=== PATIENT | female | born 1955 | race Caucasian/White ===

== ENCOUNTER 2018-10-24 13:10 | Inpatient (IN) | payer SELFPAY ==
--- NOTE | 2018-10-24 13:17 | PDOC ---
Rapid Medical Evaluation Chief Complaint: Pain, Acute Time Seen by Provider: 10/24/18 13:14 Medical Evaluation: 10/24/18 13:14 I have performed a brief in-person evaluation of this patient. The patient presents with a chief complaint of: abd pain / N/V- sent from Dr Velasquez for eval Pertinent physical exam findings: pale , abd distended with generalized pain I have ordered the following: Cbc , CMP, Lipase, UA, The patient will proceed to the ED for further evaluation. 10/24/18 13:16 Discharge Disposition - Diagnosis Abdominal pain - Referrals - Patient Instructions - Post Discharge Activity
[2018-10-24] MEDS ORDERED: ACETAMINOPHEN 1000 MG/100 ML VIAL (NON FORMULARY) IVPB ONE (13:58)
--- NOTE | 2018-10-24 14:05 | PDOC ---
History of Present Illness - General Chief Complaint: Pain Stated Complaint: SENT BY PCP/ ABD. PAIN Time Seen by Provider: 10/24/18 13:14 History Source: Patient Exam Limitations: No Limitations - History of Present Illness Initial Comments: 63 yo F no PMH p/w diffuse abdominal pain. Went to restaurant on Sunday, had diarrhea immediately upon leaving. Developed nausea and had 5 episodes of vomiting over the next two days. Ate only soup and some danielle mook since Sunday due to concerns about triggering more nausea, despite having a normal appetite. Yesterday, developed sharp periumbilical pain that started off intermittent but has since become constant. Went to her doctor Dr. Velasquez today, who immediately sent her to the ER. Denies CP, SOB, wheezing, headache, constipation, fevers/chills. Endorses sleeping more than usual. Denies any nausea, vomiting, or diarrhea over the last couple of days. Further endorses occasional dizziness she describes as "missing a step" and some lightheadedness triggered when sitting up quickly, which she attributes to poor oral intake. 10/24/18 14:00 Past History - Past Medical History Allergies/Adverse Reactions: Allergies Allergy/AdvReac Type Severity Reaction Status Date / Time No Known Allergies Allergy Verified 10/24/18 13:17 Home Medications: Ambulatory Orders NK [No Known Home Medication] 10/24/18 COPD: No - Suicide/Smoking/Psychosocial Hx Smoking History: Never smoked Information on smoking cessation initiated: No Hx Alcohol Use: No Drug/Substance Use Hx: No Review of Systems - Review of Systems Able to Perform ROS?: Yes Is the patient limited Bengali proficient: No Constitutional: No: Chills, Diaphoresis, Fever, Loss of Appetite HEENTM: No: Eye Pain, Blurred Vision, Recent change in vision, Double Vision, Hearing Loss, Throat Pain, Throat Swelling, Difficulty Swallowing, Mouth Swelling Respiratory: No: Cough, Orthopnea, Shortness of Breath Cardiac (ROS): Yes: Lightheadedness (when sitting up too quickly). No: Chest Pain, Irregular Heart Rate ABD/GI: Yes: See HPI, Other (diffuse abdominal pain). No: Abdominal Distended, Constipated, Diarrhea, Nausea, Vomiting : No: Burning, Dysuria, Discharge, Frequency Neurological: No: Headache, Numbness, Pre-Existing Deficit, Seizure, Tingling *Physical Exam - Vital Signs Last Vital Signs Temp Pulse Resp BP Pulse Ox 98.5 F 127 H 19 112/63 97 10/24/18 13:14 10/24/18 13:14 10/24/18 13:14 10/24/18 13:14 10/24/18 13:14 - Physical Exam General Appearance: Yes: Nourished, Appropriately Dressed. No: Apparent Distress HEENT: positive: EOMI, JONATHAN, Normal ENT Inspection, Normal Voice, Symmetrical, Pharynx Normal Neck: positive: Trachea midline, Normal Thyroid, Supple. negative: Decreased range of motion Respiratory/Chest: positive: Lungs Clear, Normal Breath Sounds. negative: Chest Tender, Respiratory Distress, Accessory Muscle Use Cardiovascular: positive: Regular Rhythm, Tachycardia Gastrointestinal/Abdominal: positive: Normal Bowel Sounds, Tender ( periumbilical and epigastric, including both percussion and palpation, less tenderness on each lateral side), Soft Musculoskeletal: positive: Normal Inspection. 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 Will get CBC CMP lactate EKG trop lactate. Plan for CT abd/pelvis w/ contrast based on creatinine. IV acetaminophen for pain. 10/24/18 14:16 WBC 9.7, UA negative for nitrates and leuk esterase 10/24/18 15:15 EKG reviewed, HR 85, incomplete RBBB, no STEMI. 10/24/18 16:27 Patient very emotional, wants to leave and go home to 14 yo dog who needs her. Explained the necessity of getting CT scan and patient is willing to stay for now. 10/24/18 16:35 CT reviewed, shows acute pancreatitis. Will keep NPO. 10/24/18 18:[address] Velasquez. Plan to admit with GI consult, start LR at 125cc/hr. 10/24/18 18:10 Patient reluctant to stay, but willing after risks and benefits explained. 10/24/18 18:36 CT read as patient being status post cholecystectomy, however patient denies ever having any abdominal surgery. 10/24/18 18:46 *DC/Admit/Observation/Transfer Diagnosis at time of Disposition: Abdominal pain, Acute pancreatitis - Discharge Dispostion Condition at time of disposition: Guarded Decision to Admit order: Yes - Referrals - Patient Instructions - Post Discharge Activity
[2018-10-24] MEDS ORDERED: SODIUM CHLORIDE 1,000 ML IV ONE (14:29)
[2018-10-24] MEDS ORDERED: ACETAMINOPHEN INJECTION 100 ML IVPB ONE (14:30)
--- NOTE | 2018-10-24 14:37 | PDOC ---
Attending Attestation - Resident Resident Name: Al Busch - ED Attending Attestation I have performed the following: I have examined & evaluated the patient, The case was reviewed & discussed with the resident, I agree w/resident's findings & plan, Exceptions are as noted
--- NOTE | 2018-10-24 14:41 | PDOC ---
Documentation entered by Jose Sarkar SCRIBE, acting as scribe for Darren Darby MD. Darren Darby MD: This documentation has been prepared by the scribe, Jose Sarkar SCRIBE, under my direction and personally reviewed by me in its entirety. I confirm that the documentation accurately reflects all work, treatment, procedures, and medical decision making performed by me. Attending Attestation - Resident Resident Name: Al Busch - ED Attending Attestation I have performed the following: I have examined & evaluated the patient, The case was reviewed & discussed with the resident, I agree w/resident's findings & plan, Exceptions are as noted - HPI HPI: 10/24/18 14:23 The patient is a 63 year female with no significant past medical history who presets to the emergency department with abdominal pain for 5 days. She states that her pain is localized in the epigastric region with some associated nausea , vomiting (5 episodes). The patient states that she went to see her PCP secondary to the persistent and worsening of her pain by which she was sent to the ED for further evaluation. The patient states that she is comfortable at rest. She denies any fever, chills, diarrhea, bpr, melena, constipation or urinary symptoms. She denies any sick contacts, recent travel, weakness or dizziness. The patient denies any other complaints. - Physicial Exam PE: 10/24/18 14:38 GENERAL: The patient is awake, alert, and fully oriented, Nontoxic - in no acute distress. HEAD: Normocephalic, atraumatic. EYES: extraocular movements intact, sclera anicteric, conjunctiva clear. ENT: Normal voice, dry mucous membranes. NECK: Normal range of motion, supple LUNGS: Breath sounds equal, clear to auscultation bilaterally. No wheezes, no rhonchi, no rales. HEART: tachycardic ABDOMEN: Soft, mild diffuse tenderness, no rebound or guarding, no CVA tenderness EXTREMITIES: Normal range of motion, no edema. NEUROLOGICAL: No facial assymetry, Normal speech, PSYCH: Normal mood, normal affect. SKIN: Warm, Dry, normal turgor, - Medical Decision Making 10/24/18 14:38 differential for the patient's symptoms includes possible gastroenteritis, pancreatitis, enteritis will ck labs, la will obtain CT abd pt noted tachycardic at triage- suspect due to dehydration as she has not eatin[facility] abd pain pt oethewise well appearing, smiling 10/24/18 16:55 labs noted for elevated willy/lfts awiating CT abd, signed out to evening team to reasess and dispo
[2018-10-24 14:56] LABS: BASO % 0.3 % (0-2.0); EOS % 0.4 % (0-4.5); HEMATOCRIT 37.4 % (32.4-45.2); HEMOGLOBIN 12.7 GM/dL (10.7-15.3); LYMPH % 7.3 % (8-40); MCH 30.5 pg (25.7-33.7); MCHC 33.8 g/dl (32.0-36.0); MEAN CELL VOLUME 90.3 fl (80-96); MEAN PLT VOLUME 8.3 fl (7.5-11.1); MONO % 9.4 % (3.8-10.2); NEUT % 82.6 % (42.8-82.8); PLATELET COUNT 203 K/MM3 (134-434); RBC 4.15 M/mm3 (3.60-5.2); RDW 12.4 % (11.6-15.6); WHITE BLOOD COUNT 9.7 K/mm3 (4.0-10.0)
[2018-10-24 15:03] LABS: PH,URINE 5.5 (5.0-8.0); URINE APPEARANCE CLEAR; URINE BILIRUBIN NEGATIVE (NEGATIVE); URINE COLOR YELLOW; URINE GLUCOSE (UA) NEGATIVE (NEGATIVE); URINE KETONE NEGATIVE (NEGATIVE); URINE LEUK ESTERASE TRACE (NEGATIVE); URINE NITRITE NEGATIVE (NEGATIVE); URINE PROTEIN NEGATIVE (NEGATIVE); URINE UROBILINOGEN 0.2 mg/dL (0.2-1.0)
--- NOTE | 2018-10-24 15:21 | EKG ---
Test Reason : Blood Pressure : / mmHG Vent. Rate : 085 BPM Atrial Rate : 085 BPM P-R Int : 166 ms QRS Dur : 100 ms QT Int : 386 ms P-R-T Axes : 075 018 062 degrees QTc Int : 459 ms NORMAL SINUS RHYTHM POSSIBLE LEFT ATRIAL ENLARGEMENT INCOMPLETE RIGHT BUNDLE BRANCH BLOCK BORDERLINE ECG NO PREVIOUS ECGS AVAILABLE Confirmed by TY DOYLE, RACHAEL ([id number]) on 10/24/2018 3:21:14 PM Referred By: Confirmed By:RACHAEL CRAWFORD MD
[2018-10-24 15:43] LABS: EPI CELLS 1.5 /HPF (0-5/HPF); HYALINE CASTS 0 /lpf (0-8); URINE BACTERIA 5.7 /hpf (NEGATIVE); URINE RBC 1.5 /hpf (0-4); URINE WBC 3.5 /hpf (0-5)
[2018-10-24 15:46] LABS: ALBUMIN 3.5 g/dl (3.4-5.0); ALK PHOS 205 U/L (45-117); ANION GAP 7 MMOL/L (8-16); BILIRUBIN,TOTAL 1.6 mg/dL (0.2-1); BLOOD UREA NITROGEN 11.8 mg/dL (7-18); CALCIUM 8.5 mg/dL (8.5-10.1); CHLORIDE 104 mmol/L (98-107); CO2 29 mmol/L (21-32); CREATININE 0.8 mg/dL (0.55-1.3); GLUCOSE,RANDOM 86 mg/dL (74-106); LIPASE 293 U/L (73-393); SGOT/AST 112 U/L (15-37); SGPT/ALT 498 U/L (13-61); SODIUM 140 mmol/L (136-145); TOT PROT 6.7 g/dl (6.4-8.2)
[2018-10-24] MEDS ORDERED: LACTATED RINGERS SOLUTION 1,000 ML/1,000 ML INFUS.BAG IV SCH (18:15)
--- NOTE | 2018-10-24 18:19 | HP ---
Admitting History and Physical - Admission Chief Complaint: 63 y.o F was sent from the office due to diffuse abdominal pain x 5 days. 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 IN the office 100/60-HR 120, diffuse, but more Left UQ pain and rebound, given 1.5 L D5W blood test drawn. 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 No: AFIB, Aneurysm, Aortic Insufficiency, Aortic Stenosis, CAD, CHF, Deep Vein Thrombosis, Hyperlipdemia, [place], Mitral Insufficiency, Mitral Stenosis, Murmur, Pulmonary Hypertension, Other Pulmonary: No: Asthma, Bronchitis, Cancer, COPD, O2 Dependent, Pneumonia, Previously Intubated, Pulmonary Embolus, Pulmonary Fibrosis, Sleep Apnea, Other Gastrointestinal: No: Ascites, Cancer, Constipation, Crohn's Disease, Diverticulitis, Diverticulosis, Esophageal Varices, Gastritis, GERD, GI Bleed, Hemorrhoids, Hiatal Hernia, Inflamatory Bowel Disease, Irritable Bowel Disease, Pancreatitis, Peptic Ulcer Disease, Ulcerative Colitis, Other Hepatobiliary: No: Cirrhosis, Cholelithiasis, Cholecystitis, Choledocholithiasis , Hepatitis A, Hepatitis B, Hepatitis C, Other Reproductive: Yes: Postmenopausal Heme/Onc: No: Anemia, B12 Deficiency, Bleeding Disorder, Cancer, Current Chemotherapy, Current Radiation Therapy, Hemochromatosis, Hypercoaguable State, Myeloproliferative Synd, Sickle Cell Disease, Sickle Cell Trait, Thrombocytopenia, Other Infectious Disease: No: AIDS, C-Diff, Herpes Zoster, HIV, MRSA, STD's, Tuberculosis, VREF, Other Psych: No: Addictions, Anxiety, Bipolar Musculoskeletal: No: Bursitis, Chronic low back pain, Hemiparesis, Hemiplegia, Osteoarthritis, Paraplegia, Other Rheumatology: No: Fibromyalgia, Gout, Lupus, Rheumatoid Arthritis, Sarcoidosis, Vasculitis, Other ENT: No: Allergic Rhinitis, Sinusitis, Other Endocrine: No: Asad's Disease, Kristian's Disease, Diabetes Insipidus, Diabetes Mellitus, Hyperparathyroidism, Hyperthyroidism, Hypothyroidism, Osteopenia, SIADH, Other Dermatology: No: Basal Cell, Cellulitis, Eczema, Melanoma, Psoriasis, Squamous Cell, Other - Past Surgical History Past Surgical History: No: Cholecystectomy (Did not have tucker) - Smoking History Smoking history: Never smoked - Alcohol/Substance Use Hx Alcohol Use: No Home Medications - Allergies Allergies/Adverse Reactions: Allergies Allergy/AdvReac Type Severity Reaction Status Date / Time No Known Allergies Allergy Verified 10/24/18 13:17 - Home Medications Home Medications: Ambulatory Orders NK [No Known Home Medication] 10/24/18 Family Disease History - Family Disease History Family History: Unremarkable Review of Systems - Review of Systems Constitutional: reports: Loss of Appetite, Malaise. denies: Fever, Lethargy Eyes: reports: No Symptoms HENT: reports: No Symptoms Neck: reports: No Symptoms Cardiovascular: reports: No Symptoms Respiratory: reports: No Symptoms Gastrointestinal: reports: Abdominal Pain, Bloating, Diarrhea, Nausea, Vomiting. denies: Vomiting Blood Genitourinary: reports: No Symptoms Breasts: reports: No Symptoms Reported Musculoskeletal: reports: No Symptoms Integumentary: reports: No Symptoms Neurological: reports: No Symptoms Endocrine: reports: No Symptoms Hematology/Lymphatic: reports: No Symptoms Psychiatric: reports: No Symptoms Physical Examination Vital Signs: Vital Signs Temperature 98.5 F 10/24/18 13:14 Pulse Rate 127 H 10/24/18 13:14 Respiratory Rate 19 10/24/18 13:14 Blood Pressure 112/63 10/24/18 13:14 O2 Sat by Pulse Oximetry (%) 97 10/24/18 13:14 Constitutional: Yes: Anxious, Moderate Distress Eyes: Yes: Conjunctiva Clear, EOM Intact HENT: Yes: Atraumatic, Normocephalic Neck: Yes: Supple, Trachea Midline Cardiovascular: Yes: Regular Rate and Rhythm, S1, S2 Respiratory: Yes: Regular, CTA Bilaterally Gastrointestinal: Yes: Normal Bowel Sounds, Soft, Abdomen, Obese, Tenderness ( diffuse, more LUQ), Tenderness, Epigastrium, Tenderness, Rebound. No: Ascites, Hepatomegaly, Palpable Mass, Vomiting ...Rectal Exam: Yes: Deferred Renal/: No: Anuria, Bladder Distention Breast(s): Yes: WNL Musculoskeletal: Yes: WNL Extremities: Yes: WNL Edema: No Peripheral Pulses WNL: No Integumentary: Yes: WNL Neurological: Yes: Alert, Oriented ...Motor Strength: WNL Psychiatric: Yes: WNL Labs: CBC, BMP 10/24/18 14:45 10/24/18 14:45 Laboratory Results - last 24 hr 10/24/18 10/24/18 10/24/18 14:45 14:45 14:45 WBC 9.7 RBC 4.15 Hgb 12.7 Hct 37.4 MCV 90.3 MCH 30.5 MCHC 33.8 RDW 12.4 Plt Count 203 MPV 8.3 Absolute Neuts (auto) 8.0 Neutrophils % 82.6 Lymphocytes % 7.3 L Monocytes % 9.4 Eosinophils % 0.4 Basophils % 0.3 Nucleated RBC % 0 Sodium 140 Potassium 4.0 Chloride 104 Carbon Dioxide 29 Anion Gap 7 L BUN 11.8 Creatinine 0.8 Est GFR (CKD-EPI)AfAm 90.30 Est GFR (CKD-EPI)NonAf 77.91 Random Glucose 86 Lactic Acid Calcium 8.5 Total Bilirubin 1.6 H AST 112 H ALT 498 H Alkaline Phosphatase 205 H Troponin I < 0.02 Total Protein 6.7 Albumin 3.5 Lipase 293 Urine Color Urine Appearance Urine pH Ur Specific [place] Urine Protein Urine Glucose (UA) Urine Ketones Urine Blood Urine Nitrite Urine Bilirubin Urine Urobilinogen Ur Leukocyte Esterase Urine WBC (Auto) Urine RBC (Auto) Urine Casts (Auto) U Epithel Cells (Auto) Urine Bacteria (Auto) Acetone, Qual Negative L 10/24/18 10/24/18 14:45 14:49 WBC RBC Hgb Hct MCV MCH MCHC RDW Plt Count MPV Absolute Neuts (auto) Neutrophils % Lymphocytes % Monocytes % Eosinophils % Basophils % Nucleated RBC % Sodium Potassium Chloride Carbon Dioxide Anion Gap BUN Creatinine Est GFR (CKD-EPI)AfAm Est GFR (CKD-EPI)NonAf Random Glucose Lactic Acid 1.4 Calcium Total Bilirubin AST ALT Alkaline Phosphatase Troponin I Total Protein Albumin Lipase Urine Color Yellow Urine Appearance Clear Urine pH 5.5 Ur Specific [place] 1.005 L Urine Protein Negative Urine Glucose (UA) Negative Urine Ketones Negative Urine Blood Negative Urine Nitrite Negative Urine Bilirubin Negative Urine Urobilinogen 0.2 Ur Leukocyte Esterase Trace Urine WBC (Auto) 3.5 Urine RBC (Auto) 1.5 Urine Casts (Auto) 0 U Epithel Cells (Auto) 1.5 Urine Bacteria (Auto) 5.7 Acetone, Qual Imaging - Results Cat Scan: Report Reviewed Problem List - Problems (1) Abdominal pain Assessment/Plan: Edematous acute interstitial pancreatitis on CT? vs other etiology. Noted Normal Lipase. Continue IV fluids, IV Abx Ceftriaxone, Flagyl. Code(s): R10.9 - UNSPECIFIED ABDOMINAL PAIN Qualifiers: Abdominal location: left upper quadrant Qualified Code(s): R10.12 - Left upper quadrant pain (2) Acute pancreatitis Assessment/Plan: GI consult NPO Continue IV fluidsIV abx repeat Lipase AM. Code(s): K85.90 - ACUTE PANCREATITIS WITHOUT NECROSIS OR INFECTION, UNSP Qualifiers: Pancreatitis type: unspecified pancreatitis type Acute pancreatitis complication: no infection or necrosis Qualified Code(s): K85.90 - Acute pancreatitis without necrosis or infection, unspecified
[2018-10-24 19:47] LABS: AMYLASE 59 U/L (25-115)
--- NOTE | 2018-10-24 21:11 | CON.GI ---
Consult Consult Specialty:: Gastroenterology Referred by:: Dr Velasquez Reason for Consultation:: abdominal pain - History of Present Illness Chief Complaint: diffuse upper abdominal pain History of Present Illness: 63F has had N/V with diffuse upper abdominal pain for the past 5 days which became markedly worse today and prompted her to see Dr Velasquez. He noted marked LUQ tenderness and rebound. The pain has kept her from eating for the past 5 days. She vomited when she attempted to eat. The pain does not radiate into her back, neck or groin. Her LFTs are elevated and her CT reveals edema of the tail of the pancreas and periancreatic area as well as mild ductal dilatation. She has never had any abdominal surgery. She has lost 50lbs in the past 3 years which she attributes to a diet that she abandoned at the beginning of this year. She claims that her weight loss plateaued this year. Her mother of stomach cancer with liver metastases at age 60. She has never had an EGD or a colonoscopy. 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 weight loss) Eyes: reports: No Symptoms HENT: reports: No Symptoms, Ocular Prosthesis Cardiovascular: reports: No Symptoms Respiratory: reports: No Symptoms Gastrointestinal: reports: Abdominal Pain, Nausea, Vomiting Genitourinary: reports: No Symptoms Breasts: reports: No Symptoms Reported Musculoskeletal: reports: No Symptoms Physical Exam-GI Vital Signs: Vital Signs Temperature 99.0 F 10/24/18 19:18 Pulse Rate 75 10/24/18 19:18 Respiratory Rate 17 10/24/18 19:18 Blood Pressure 111/62 10/24/18 19:18 O2 Sat by Pulse Oximetry (%) 99 10/24/18 19:18 CBC,CMP WBC 9.7 K/mm3 (4.0-10.0) 10/24/18 14:45 RBC 4.15 M/mm3 (3.60-5.2) 10/24/18 14:45 Hgb 12.7 GM/dL (10.7-15.3) 10/24/18 14:45 Hct 37.4 % (32.4-45.2) 10/24/18 14:45 MCV 90.3 fl (80-96) 10/24/18 14:45 MCH 30.5 pg (25.7-33.7) 10/24/18 14:45 MCHC 33.8 g/dl (32.0-36.0) 10/24/18 14:45 RDW 12.4 % (11.6-15.6) 10/24/18 14:45 Plt Count 203 K/MM3 (134-434) 10/24/18 14:45 MPV 8.3 fl (7.5-11.1) 10/24/18 14:45 Absolute Neuts (auto) 8.0 K/mm3 (1.5-8.0) 10/24/18 14:45 Neutrophils % 82.6 % (42.8-82.8) 10/24/18 14:45 Lymphocytes % 7.3 % (8-40) L 10/24/18 14:45 Monocytes % 9.4 % (3.8-10.2) 10/24/18 14:45 Eosinophils % 0.4 % (0-4.5) 10/24/18 14:45 Basophils % 0.3 % (0-2.0) 10/24/18 14:45 Nucleated RBC % 0 % (0-0) 10/24/18 14:45 Sodium 140 mmol/L (136-145) 10/24/18 14:45 Potassium 4.0 mmol/L (3.5-5.1) 10/24/18 14:45 Chloride 104 mmol/L (98-107) 10/24/18 14:45 Carbon Dioxide 29 mmol/L (21-32) 10/24/18 14:45 Anion Gap 7 MMOL/L (8-16) L 10/24/18 14:45 BUN 11.8 mg/dL (7-18) 10/24/18 14:45 Creatinine 0.8 mg/dL (0.55-1.3) 10/24/18 14:45 Est GFR (CKD-EPI)AfAm 90.30 10/24/18 14:45 Est GFR (CKD-EPI)NonAf 77.91 10/24/18 14:45 Random Glucose 86 mg/dL (74-106) 10/24/18 14:45 Lactic Acid 1.4 mmol/L (0.4-2.0) 10/24/18 14:45 Calcium 8.5 mg/dL (8.5-10.1) 10/24/18 14:45 Total Bilirubin 1.6 mg/dL (0.2-1) H 10/24/18 14:45 AST 112 U/L (15-37) H 10/24/18 14:45 ALT 498 U/L (13-61) H 10/24/18 14:45 Alkaline Phosphatase 205 U/L (45-117) H 10/24/18 14:45 Troponin I < 0.02 ng/ml (0.00-0.05) 10/24/18 14:45 Total Protein 6.7 g/dl (6.4-8.2) 10/24/18 14:45 Albumin 3.5 g/dl (3.4-5.0) 10/24/18 14:45 Total Amylase 59 U/L (25-115) 10/24/18 14:45 Lipase 293 U/L (73-393) 10/24/18 14:45 Current Medications Generic Name Dose Route Start Last Admin Trade Name Freq PRN Reason Stop Dose Admin Lactated Ringer's 1,000 ml in 1,000 mls @ 125 mls/hr 10/24/18 18:15 10/24/18 19:11 Lactated Ringers Solution IV 125 mls/hr ASDIR KANDY Administration Ceftriaxone Sodium 1 gm/ 100 mls @ 200 mls/hr 10/25/18 06:00 Dextrose IVPB 10/30/18 05:59 DAILY@0600 KANDY Protocol Metronidazole 500 mg in 100 mls @ 100 mls/hr 10/25/18 02:00 Flagyl 500mg Premixed Ivpb - IVPB Q8H-IV KANDY Constitutional: Yes: Anxious Eyes: Yes: Conjunctiva Clear HENT: Yes: Atraumatic Neck: Yes: Supple Cardiovascular: Yes: Regular Rate and Rhythm Respiratory: Yes: CTA Bilaterally ...Auscultate: Yes: Hypoactive Bowel Sounds ...Palpate: Yes: Soft, Tenderness (mild epigastirc tenderness) ...Rectal Exam: Yes: Guaiac Negative (no masses, brown guaiac negative stool) Labs: CBC, BMP 10/24/18 14:45 10/24/18 14:45 Imaging - Results Cat Scan: Report Reviewed ( Final Report CT ABDOMEN & PELVIS CT WITH CONTR Show Printer-Friendly Version Patient Name: Rose PerkinsRachelle : May-1955 ID: [id number] Study Date: 24-Oct-2018 17:04 [facility] Name: [facility] DEPARTMENT OF RADIOLOGY Phys: Adelso Foote RESIDENT : 1955 Age: 63 Sex: F [facility] Acct: [id number] Loc: [address] Exam Date: 10/24/18 Status: SHIVA [place] [id number] Unit Number: [id number] EXAM#: TYPE/EXAM: RESULT: [id number] CT/ABDOMEN PELVIS CT WITH CONTR Abdomen and pelvis CT with contrast Clinical information: diffuse abdominal pain Multiplanar imaging was performed utilizing intravenous as well as oral contrast. No prior imaging studies are available at this facility for direct comparison. No evidence of pneumoperitoneum, abscess or bowel obstruction. Soft tissue stranding consistent with edema is seen within the left upper quadrant interposed between the pancreatic tail, spleen and anterior pararenal fascia there is equivocal mild swelling of the pancreatic tail. No CT evidence of pancreatic necrosis. A trace amount of free fluid is seen within the left paracolic space at the level of the mid abdomen. Status post cholecystectomy. Mild extrahepatic and minimal intrahepatic biliary tract dilatation is seen. The common bile duct diameter is 0.9 cm. No gross intraductal calculus is visualized within the limitations of CT. The liver, spleen, and right adrenal gland demonstrate no discrete abnormality. There is no aortic aneurysm. No definite lymphadenopathy is identified. Mild left adrenal gland thickening is seen. Numerous prominent bilateral renal peripelvic cysts are noted. A component of hydronephrosis would be difficult to exclude given the lack of pyelographic imaging on the current study. There is no definite ureteral dilatation. The urinary bladder demonstrates no obvious intrinsic or extrinsic CT pathology. No obvious evidence of urolithiasis on contrast-enhanced imaging. The appendix is partially visualized and demonstrates no obvious abnormality. Minimal colonic diverticulosis is seen without evidence of acute diverticulitis. No gross small bowel pathology is identified allowing for very limited luminal opacification. There is no obvious pelvic pathology. The visualized osseous structures definite no gross acute abnormality. Impression: Left upper quadrant soft tissue edema is seen as discussed above most likely on the basis of acute pancreatitis. Clinical/laboratory correlation is suggested. Status post cholecystectomy. Mild biliary tract dilatation is noted which could be on a postsurgical basis. Clinical/laboratory correlation is suggested. Mild left adrenal gland thickening is seen probably on the basis of hypoplasia versus subcentimeter adenomas. Biochemical evaluation is suggested as well as 3 month follow-up noncontrast MRI/CT. Numerous prominent bilateral renal peripelvic cysts are seen. Coexisting hydronephrosis bilaterally would be difficult to exclude on the basis of the current exam. Correlation with nonemergent multiphase contrast-enhanced CT is suggested in this regard. Reported By: Clifford Elkins MD 10/24/181800 Adelso Foote Technologist: Maycol Torres Transcribed Date/Time: 10/24/181800 Freight Router: Clifford Elkins Printed Date/Time: By: Signed by: Clifford Elkins Signed on: 24-Oct-2018 18:02) Problem List - Problems (1) Abnormal LFTs (liver function tests) Code(s): R94.5 - ABNORMAL RESULTS OF LIVER FUNCTION STUDIES (2) Weight loss Code(s): R63.4 - ABNORMAL WEIGHT LOSS (3) Family history of stomach cancer Code(s): Z80.0 - FAMILY HISTORY OF MALIGNANT NEOPLASM OF DIGESTIVE ORGANS (4) Abdominal pain Code(s): R10.9 - UNSPECIFIED ABDOMINAL PAIN Qualifiers: Abdominal location: left upper quadrant Qualified Code(s): R10.12 - Left upper quadrant pain (5) Acute pancreatitis Code(s): K85.90 - ACUTE PANCREATITIS WITHOUT NECROSIS OR INFECTION, UNSP Qualifiers: Pancreatitis type: unspecified pancreatitis type Acute pancreatitis complication: no infection or necrosis Qualified Code(s): K85.90 - Acute pancreatitis without necrosis or infection, unspecified Assessment/Plan Assessment: - The combination of abnormal LFTs, pain and pancreatic inflammation suggests biliary pancreatitis but her weight loss may be indicative of an underlying pancreatic or biliary tract malignancy. I have discussed these issues with Mary and a close friend and discussed the potential need for an ERCP to extract stones or to place a stent. I have discussed the potential for such complications as perforation and hemorrhage that could lead to transfusions and emergent surgery as well as the potential for multiorgan failure associated with ERCP induced pancreatitis. She has signed an informed consent. I have discussed the critical role for an MRCP at this point and have arrange to have it done tonight. She is at risk for ascending cholangitis. - gastric cancer Plan: -- Stat MRCP -- Blood cultures, then start antibiotics -- Ringer's lactate hydration -- NPO for possible ERCP tomorrow -- INR and Ca 19.9 ordered. -- She will ultimately need EGD and colonoscopy
[2018-10-24] MEDS ORDERED: HYDROmorphone HCl 2 MG/ML VIAL IVPB PRN (21:38)
[2018-10-24] MEDS: DOCUSATE SODIUM 100 MG CAPSULE (FP) PO SCH (22:36)
[2018-10-24] MEDS: ZOLPIDEM TARTRATE 5 MG TABLET PO PRN (22:37)
[2018-10-24 23:30] VITALS: BMI 31.4
[2018-10-24 23:42] LABS: INR 1.23 (0.83-1.09); PROTHROMBIN TIME (PATIENT) 14.6 SEC (9.7-13.0)
[2018-10-25] MEDS ORDERED: CEFAZOLIN 1 GM in DEXTROSE 5%-WATER - 50 ML IVPB SCH (02:00)
[2018-10-25] MEDS ORDERED: DEXTROSE 5%-WATER - 50 ML IVPB ONE (05:34)
[2018-10-25] MEDS ORDERED: cefTRIAXone SODIUM 1 GM VIAL ONE (05:34)
[2018-10-25] MEDS ORDERED: CEFTRIAXONE 1 GM in DEXTROSE 5%-WATER - 50 ML IVPB SCH (06:00)
[2018-10-25 08:52] LABS: BASO % 0.6 % (0-2.0); EOS % 1.1 % (0-4.5); HEMATOCRIT 33.4 % (32.4-45.2); HEMOGLOBIN 11.4 GM/dL (10.7-15.3); LYMPH % 8.5 % (8-40); MCH 30.8 pg (25.7-33.7); MCHC 34.2 g/dl (32.0-36.0); MEAN CELL VOLUME 90.2 fl (80-96); MEAN PLT VOLUME 8.3 fl (7.5-11.1); MONO % 7.6 % (3.8-10.2); NEUT % 82.2 % (42.8-82.8); RDW 12.1 % (11.6-15.6); WHITE BLOOD COUNT 6.4 K/mm3 (4.0-10.0)
[2018-10-25 09:08] LABS: PLATELET COUNT 179 K/MM3 (134-434)
[2018-10-25 09:22] LABS: BILIRUBIN,TOTAL 0.9 mg/dL (0.2-1); BLOOD UREA NITROGEN 8.2 mg/dL (7-18); CALCIUM 8.2 mg/dL (8.5-10.1); CREATININE 0.6 mg/dL (0.55-1.3); MAGNESIUM 2.3 mg/dL (1.8-2.4); POTASSIUM 3.2 mmol/L (3.5-5.1); TOT PROT 5.7 g/dl (6.4-8.2)
[2018-10-25] MEDS ORDERED: INDOMETHACIN 50 MG RECTAL SUPPOSITORY PR ONE ×2 (09:29→11:25)
[2018-10-25] MEDS ORDERED: PHYTONADIONE 10 MG/1 ML AMP IVPB ONE (09:29)
--- NOTE | 2018-10-25 09:36 | PN ---
Progress Note (short form) - Note Progress Note: Patient was discussed with Dr De Anda MRI-suggestive of distal CBD stones. ERCP-planned. Laboratory Results - last 24 hr 10/24/18 10/24/18 10/24/18 14:45 14:45 14:45 WBC 9.7 RBC 4.15 Hgb 12.7 Hct 37.4 MCV 90.3 MCH 30.5 MCHC 33.8 RDW 12.4 Plt Count 203 MPV 8.3 Absolute Neuts (auto) 8.0 Neutrophils % 82.6 Lymphocytes % 7.3 L Monocytes % 9.4 Eosinophils % 0.4 Basophils % 0.3 Nucleated RBC % 0 PT with INR INR Sodium 140 Potassium 4.0 Chloride 104 Carbon Dioxide 29 Anion Gap 7 L BUN 11.8 Creatinine 0.8 Est GFR (CKD-EPI)AfAm 90.30 Est GFR (CKD-EPI)NonAf 77.91 Random Glucose 86 Lactic Acid Calcium 8.5 Phosphorus Magnesium Total Bilirubin 1.6 H AST 112 H ALT 498 H Alkaline Phosphatase 205 H Troponin I < 0.02 C-Reactive Protein Total Protein 6.7 Albumin 3.5 Total Amylase 59 Lipase 293 Urine Color Urine Appearance Urine pH Ur Specific [place] Urine Protein Urine Glucose (UA) Urine Ketones Urine Blood Urine Nitrite Urine Bilirubin Urine Urobilinogen Ur Leukocyte Esterase Urine WBC (Auto) Urine RBC (Auto) Urine Casts (Auto) U Epithel Cells (Auto) Urine Bacteria (Auto) Acetone, Qual Negative L 10/24/18 10/24/18 10/24/18 14:45 14:49 22:30 WBC RBC Hgb Hct MCV MCH MCHC RDW Plt Count MPV Absolute Neuts (auto) Neutrophils % Lymphocytes % Monocytes % Eosinophils % Basophils % Nucleated RBC % PT with INR 14.60 H INR 1.23 H Sodium Potassium Chloride Carbon Dioxide Anion Gap BUN Creatinine Est GFR (CKD-EPI)AfAm Est GFR (CKD-EPI)NonAf Random Glucose Lactic Acid 1.4 Calcium Phosphorus Magnesium Total Bilirubin AST ALT Alkaline Phosphatase Troponin I C-Reactive Protein Total Protein Albumin Total Amylase Lipase Urine Color Yellow Urine Appearance Clear Urine pH 5.5 Ur Specific [place] 1.005 L Urine Protein Negative Urine Glucose (UA) Negative Urine Ketones Negative Urine Blood Negative Urine Nitrite Negative Urine Bilirubin Negative Urine Urobilinogen 0.2 Ur Leukocyte Esterase Trace Urine WBC (Auto) 3.5 Urine RBC (Auto) 1.5 Urine Casts (Auto) 0 U Epithel Cells (Auto) 1.5 Urine Bacteria (Auto) 5.7 Acetone, Qual 10/25/18 10/25/18 10/25/18 08:00 08:00 08:05 WBC 6.4 RBC 3.70 Hgb 11.4 Hct 33.4 MCV 90.2 MCH 30.8 MCHC 34.2 RDW 12.1 Plt Count 179 MPV 8.3 Absolute Neuts (auto) 5.3 Neutrophils % 82.2 Lymphocytes % 8.5 Monocytes % 7.6 Eosinophils % 1.1 D Basophils % 0.6 Nucleated RBC % 0 PT with INR INR Sodium 142 Potassium 3.2 L Chloride 106 Carbon Dioxide 28 Anion Gap 8 BUN 8.2 Creatinine 0.6 Est GFR (CKD-EPI)AfAm 111.64 Est GFR (CKD-EPI)NonAf 96.33 Random Glucose 84 Lactic Acid Calcium 8.2 L Phosphorus 3.0 Magnesium 2.3 Total Bilirubin 0.9 AST 49 H ALT 322 H Alkaline Phosphatase 154 H Troponin I C-Reactive Protein 13.7 H Total Protein 5.7 L Albumin 3.0 L Total Amylase 32 Lipase 204 Urine Color Urine Appearance Urine pH Ur Specific [place] Urine Protein Urine Glucose (UA) Urine Ketones Urine Blood Urine Nitrite Urine Bilirubin Urine Urobilinogen Ur Leukocyte Esterase Urine WBC (Auto) Urine RBC (Auto) Urine Casts (Auto) U Epithel Cells (Auto) Urine Bacteria (Auto) Acetone, Qual Current Active Problems Problem Status Onset Abdominal pain Acute Abnormal LFTs (liver function tests) Acute Acute pancreatitis Acute Family history of stomach cancer Acute Weight loss Acute Lungs Clear Heart S1S2 regular Abdomen soft Tenderness diffuse. Plan ERCP today IV ABX IV fluids Problem List - Problems (1) Abdominal pain Code(s): R10.9 - UNSPECIFIED ABDOMINAL PAIN Qualifiers: Abdominal location: left upper quadrant Qualified Code(s): R10.12 - Left upper quadrant pain (2) Acute pancreatitis Code(s): K85.90 - ACUTE PANCREATITIS WITHOUT NECROSIS OR INFECTION, UNSP Qualifiers: Pancreatitis type: unspecified pancreatitis type Acute pancreatitis complication: no infection or necrosis Qualified Code(s): K85.90 - Acute pancreatitis without necrosis or infection, unspecified
[2018-10-25] MEDS ORDERED: IOHEXOL 300 MG/ML INFUS..BTL IV ONE (11:15)
--- NOTE | 2018-10-25 12:35 | PN ---
Progress Note (short form) - Note Progress Note: GI Procedure NOte: Please see ERCP report. Multiple large stones cleared from the CBD. Discussed findings with Mary and her sister Alison and advised GB surgery KEN. They are in agreement. Discussed with Dr Velasquez and consulted Dr. Hebert with whom I communicated. If no pancreatitis ensues, can proceed with lap choly. Problem List - Problems (1) Abnormal LFTs (liver function tests) Code(s): R94.5 - ABNORMAL RESULTS OF LIVER FUNCTION STUDIES (2) Weight loss Code(s): R63.4 - ABNORMAL WEIGHT LOSS (3) Family history of stomach cancer Code(s): Z80.0 - FAMILY HISTORY OF MALIGNANT NEOPLASM OF DIGESTIVE ORGANS (4) Abdominal pain Code(s): R10.9 - UNSPECIFIED ABDOMINAL PAIN Qualifiers: Abdominal location: left upper quadrant Qualified Code(s): R10.12 - Left upper quadrant pain (5) Acute pancreatitis Code(s): K85.90 - ACUTE PANCREATITIS WITHOUT NECROSIS OR INFECTION, UNSP Qualifiers: Pancreatitis type: unspecified pancreatitis type Acute pancreatitis complication: no infection or necrosis Qualified Code(s): K85.90 - Acute pancreatitis without necrosis or infection, unspecified
[2018-10-25] MEDS ORDERED: LACTATED RINGERS SOLUTION 1,000 ML/1,000 ML INFUS.BAG IV SCH ×2 (12:45→18:45)
[2018-10-25] MEDS ORDERED: ACETAMINOPHEN 1000 MG/100 ML VIAL (NON FORMULARY) IVPB PRN ×2 (12:58→16:49)
[2018-10-25] MEDS ORDERED: ACETAMINOPHEN INJECTION 100 ML IVPB ONE (13:01)
[2018-10-25] MEDS ORDERED: ONDANSETRON 4 MG/2 ML VIAL IVPB PRN (13:01)
[2018-10-25] MEDS ORDERED: ONDANSETRON 4 MG/2 ML VIAL ONE (13:02)
--- NOTE | 2018-10-25 15:40 | CONSULT ---
Consult Consult Specialty:: General Surgery Referred by:: Monica De Anda Reason for Consultation:: cbd stones, pancreatitis - History of Present Illness Chief Complaint: upper abdominal pain, diarrhea, N/V History of Present Illness: 63yo F with no PMH/PSH had an episode of diarrhea on Sunday evening, followed by repeated N/V over the next 3 days, associated with upper abdominal pain, more left than right and epigastric, which she initially thought was food poisoning. She was unable to keep down food or fluids because of the vomiting, and had little po intake over that time. She did not take anything for the pain , which did persist. No further diarrhea or BMs until recently in the hospital. She saw her PMD (Dr. Velasquez), who sent her to the ER after giving her 3 bags of IV fluids. In the ER, her wbc was normal, she was afebrile, and LFTs were mildly elevated, with normal bili and lipase. Workup has included imaging (CT/US), which showed a very small/contracted gallbladder likely with stones, mildly dilated CBD, and MRCP with multiple CBD stones. Today, she had ERCP with GI, Dr. De Anda, who extracted multiple stones from the CBD, and surgery was asked to assess. She is seen and examined in her room, with sister present. She ambulated to/ from bathroom, and had some diarrhea. She currently has no sig pain, but is still a bit tender. She complains of irritated throat and being thirsty (after ERCP/intubation). She relates the above history. Has never had colonoscopy or surgery before, takes no home meds, and reports no known medical problems. - History Source History Provided By: Patient Limitations to Obtaining History: No Limitations - Past Medical History Reproductive: Yes: Postmenopausal Additional Medical History: patient denies all - no home meds - Past Surgical History Past Surgical History: Yes: None Additional Surgical History: ERCP today w/multiple CBD stone extraction - Alcohol/Substance Use Hx Alcohol Use: Yes (occasional) History of Substance Use: reports: None - Smoking History Smoking history: Never smoked Have you smoked in the past 12 months: No - Social History Usual Living Arrangement: Alone (never , no children, has a sister) ADL: Independent 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 denies: Chills, Fever Eyes: denies: Blurred Vision, Recent Change in Vision HENT: denies: Difficult Swallowing, Throat Pain Neck: denies: Swollen Glands, Tenderness Cardiovascular: denies: Chest Pain, Palpitations Respiratory: denies: Cough, SOB Gastrointestinal: reports: Abdominal Pain (with hpi), Diarrhea (with hpi), Nausea (with hpi), Vomiting (with hpi). denies: Constipation, Rectal Bleeding, Vomiting Blood Genitourinary: denies: Burning, Dysuria Musculoskeletal: denies: Back Pain, Joint Pain, Muscle Pain Integumentary: denies: Change in Color, Rash Neurological: denies: Dizziness, Headache, Unsteady Gait Psychiatric: denies: Anxiety, Depression Physical Exam Vital Signs: Vital Signs Temperature 98.1 F 10/25/18 14:26 Pulse Rate 67 10/25/18 14:26 Respiratory Rate 18 10/25/18 14:26 Blood Pressure 124/65 10/25/18 14:26 O2 Sat by Pulse Oximetry (%) 100 10/25/18 13:40 Constitutional: Yes: No Distress, Calm, Obese Eyes: Yes: Conjunctiva Clear, EOM Intact. No: Sclera Icterus HENT: Yes: Atraumatic, Normocephalic Neck: Yes: Supple, Trachea Midline Cardiovascular: Yes: Regular Rate and Rhythm Respiratory: Yes: Regular, CTA Bilaterally Gastrointestinal: Yes: Normal Bowel Sounds, Soft, Abdomen, Obese, Tenderness ( RUQ/epigastric > LUQ, no rebound or guarding), Tenderness, Epigastrium, Other ( no scars). No: Distention ...Rectal Exam: Yes: Deferred Renal/: No: CVA Tenderness - Left, CVA Tenderness - Right Musculoskeletal: No: Back Pain (no direct tenderness), Joint Stiffness, Joint Swelling Extremities: No: Cool, Cyanosis Edema: No Peripheral Pulses WNL: Yes Integumentary: No: Jaundice, Rash Neurological: Yes: Alert, Oriented. No: Unsteady Gait Psychiatric: Yes: Alert, Oriented Labs: CBC, BMP 10/25/18 08:00 10/25/18 08:05 CMP Sodium 142 mmol/L (136-145) 10/25/18 08:05 Potassium 3.2 mmol/L (3.5-5.1) L 10/25/18 08:05 Chloride 106 mmol/L (98-107) 10/25/18 08:05 Carbon Dioxide 28 mmol/L (21-32) 10/25/18 08:05 Anion Gap 8 MMOL/L (8-16) 10/25/18 08:05 BUN 8.2 mg/dL (7-18) 10/25/18 08:05 Creatinine 0.6 mg/dL (0.55-1.3) 10/25/18 08:05 Est GFR (CKD-EPI)AfAm 111.64 10/25/18 08:05 Est GFR (CKD-EPI)NonAf 96.33 10/25/18 08:05 Random Glucose 84 mg/dL (74-106) 10/25/18 08:05 Lactic Acid 1.4 mmol/L (0.4-2.0) 10/24/18 14:45 Calcium 8.2 mg/dL (8.5-10.1) L 10/25/18 08:05 Phosphorus 3.0 mg/dL (2.5-4.9) 10/25/18 08:05 Magnesium 2.3 mg/dL (1.8-2.4) 10/25/18 08:05 Total Bilirubin 0.9 mg/dL (0.2-1) 10/25/18 08:05 AST 49 U/L (15-37) H 10/25/18 08:05 ALT 322 U/L (13-61) H 10/25/18 08:05 Alkaline Phosphatase 154 U/L (45-117) H 10/25/18 08:05 Troponin I < 0.02 ng/ml (0.00-0.05) 10/24/18 14:45 C-Reactive Protein 13.7 MG/DL (0.00-0.3) H 10/25/18 08:00 Total Protein 5.7 g/dl (6.4-8.2) L 10/25/18 08:05 Albumin 3.0 g/dl (3.4-5.0) L 10/25/18 08:05 Total Amylase 32 U/L (25-115) 10/25/18 08:00 Lipase 204 U/L (73-393) 10/25/18 08:05 INR, PTT INR 1.23 (0.83-1.09) H 10/24/18 22:30 Urine Test Results Urine Color Yellow 10/24/18 14:49 Urine Appearance Clear 10/24/18 14:49 Urine pH 5.5 (5.0-8.0) 10/24/18 14:49 Ur Specific [place] 1.005 (1.010-1.035) L 10/24/18 14:49 Urine Protein Negative (NEGATIVE) 10/24/18 14:49 Urine Glucose (UA) Negative (NEGATIVE) 10/24/18 14:49 Urine Ketones Negative (NEGATIVE) 10/24/18 14:49 Urine Blood Negative (NEGATIVE) 10/24/18 14:49 Urine Nitrite Negative (NEGATIVE) 10/24/18 14:49 Urine Bilirubin Negative (NEGATIVE) 10/24/18 14:49 Ur Leukocyte Esterase Trace (NEGATIVE) 10/24/18 14:49 LFTs down a little lipase down from 283 (in normal range) K+ low Imaging - Results Cat Scan: Report Reviewed, Image Reviewed (gallbladder very small, pancreatic tail inflammation) Ultrasound: Report Reviewed, Image Reviewed (contracted gallbladder with stones , mildly dilated cbd) MRI: Report Reviewed, Image Reviewed (cbd stones with contracted gallbladder) Problem List - Problems (1) Acute biliary pancreatitis without infection or necrosis Code(s): K85.10 - BILIARY ACUTE PANCREATITIS WITHOUT NECROSIS OR INFECTION (2) Calculus of gallbladder and bile duct with obstruction without cholecystitis Code(s): K80.71 - CALCULUS OF GB AND BILE DUCT W/O CHOLECYST W OBSTRUCTION (3) Epigastric pain Code(s): R10.13 - EPIGASTRIC PAIN (4) Nausea and vomiting Code(s): R11.2 - NAUSEA WITH VOMITING, UNSPECIFIED Qualifiers: Vomiting type: unspecified Vomiting Intractability: non-intractable Qualified Code(s): R11.2 - Nausea with vomiting, unspecified Assessment/Plan admitted to medicine s/p ERCP today with extraction of multiple CBD stones contracted gallbladder with stones on imaging pancreatitis, mainly in tail by imaging mild epigastric/RUQ tend > LUQ starting clears tonight continue generous IV fluids for now given pancreatitis trend labs, replete lytes prn monitor for post-ERCP pancreatitis worsening would stick to clears through Sunday unless pain/tenderness resolve completely Discussed with patient risks, benefits and alternatives of laparoscopic possible open cholecystectomy, including but not limited to bleeding, infection , injury to adjacent structures, bile leak or ductal injury, intraabdominal abscess, incisional hernia, need for further procedures; alternatives include delayed or no surgery - risks of this include recurrence of pancreatitis, cholecystitis, cholangitis, sepsis. Patient agreeable to proceed with operation. Informed consent signed for same and left on chart. Current plan is for OR Sunday 12:30pm. NPO after midnight Sunday T&S ordered for am will follow with you
[2018-10-25] MEDS ORDERED: HYDROmorphone HCl 2 MG/ML VIAL IVPB PRN (16:50)
[2018-10-25] MEDS ORDERED: AMPICILLIN NA/SULBACTAM NA 3 GM in SODIUM CHLORIDE 100 ML IVPB SCH (18:00)
[2018-10-25] MEDS ORDERED: AMPICILLIN NA/SULBACTAM NA 1.5 GM in SODIUM CHLORIDE 100 ML IVPB SCH (18:00)
--- NOTE | 2018-10-25 18:06 | CON.ID ---
Consult - History of Present Illness History of Present Illness: 63 y.o. female with no PMH presented with c/o severe upper abd pain, n/v/d for the past 5 days. She was seen by PMD who referred her to the ER. Pt was found to have elevated LFTs and CT Abd revealing gallstones, dilated CBD, and findings suggestive of pancreatitis. She has been having low grade fever Tmax 100.3F this am. Pt has just had an ERCP done with extraction of multiple large stones. Currently she denies any abd pain and has had no recent n/v/d. Started on clear liquid diet and denies any discomfort. She denies having any other complaints. 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 AID: Yes: Peripheral Neuropathy Cardio/Vascular: Yes: HTN Pulmonary: No: Asthma, Bronchitis, Cancer, COPD, O2 Dependent, Pneumonia, Previously Intubated, Pulmonary Embolus, Pulmonary Fibrosis, Sleep Apnea, Other Gastrointestinal: No: Ascites, Cancer, Constipation, Crohn's Disease, Diverticulitis, Diverticulosis, Esophageal Varices, Gastritis, GERD, GI Bleed, Hemorrhoids, Hiatal Hernia, Inflamatory Bowel Disease, Irritable Bowel Disease, Pancreatitis, Peptic Ulcer Disease, Ulcerative Colitis, Other Hepatobiliary: No: Cirrhosis, Cholelithiasis, Cholecystitis, Choledocholithiasis , Hepatitis A, Hepatitis B, Hepatitis C, Other Infectious Disease: No: AIDS, C-Diff, Herpes Zoster, HIV, MRSA, STD's, Tuberculosis, VREF, Other Psych: No: Addictions, Anxiety, Bipolar Musculoskeletal: No: Bursitis, Chronic low back pain, Hemiparesis, Hemiplegia, Osteoarthritis, Paraplegia, Other Rheumatology: No: Fibromyalgia, Gout, Lupus, Rheumatoid Arthritis, Sarcoidosis, Vasculitis, Other ENT: No: Allergic Rhinitis, Sinusitis, Other Endocrine: No: Shasta's Disease, Kristian's Disease, Diabetes Insipidus, Diabetes Mellitus, Hyperparathyroidism, Hyperthyroidism, Hypothyroidism, Osteopenia, SIADH, Other Dermatology: No: Basal Cell, Cellulitis, Eczema, Melanoma, Psoriasis, Squamous Cell, Other Additional Medical History: patient denies all - no home meds - Past Surgical History Past Surgical History: Yes: None Additional Surgical History: ERCP today w/multiple CBD stone extraction - Alcohol/Substance Use Hx Alcohol Use: Yes (occasional) History of Substance Use: reports: None - Smoking History Smoking history: Never smoked Have you smoked in the past 12 months: No - Social History Usual Living Arrangement: Alone (never , no children, has a sister) ADL: Independent 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 History of Recent Travel: No Home Medications - Allergies Allergies/Adverse Reactions: Allergies Allergy/AdvReac Type Severity Reaction Status Date / Time No Known Allergies Allergy Verified 10/24/18 13:17 - Home Medications Home Medications: Ambulatory Orders NK [No Known Home Medication] 10/24/18 Family Disease History - Family Disease History Family Disease History: CA: Father ( 80 pancreatic cancer), Mother ( 60 stomach cancer) Review of Systems - Review of Systems Constitutional: reports: No Symptoms Eyes: reports: No Symptoms HENT: reports: No Symptoms Neck: reports: No Symptoms Cardiovascular: reports: No Symptoms Respiratory: reports: No Symptoms Gastrointestinal: reports: No Symptoms Genitourinary: reports: No Symptoms Musculoskeletal: reports: No Symptoms Integumentary: reports: No Symptoms Neurological: reports: No Symptoms Endocrine: reports: No Symptoms Hematology/Lymphatic: reports: No Symptoms Psychiatric: reports: No Symptoms Physical Exam Vital Signs: Vital Signs Temperature 98.1 F 10/25/18 14:26 Pulse Rate 67 10/25/18 14:26 Respiratory Rate 18 10/25/18 14:26 Blood Pressure 124/65 10/25/18 14:26 O2 Sat by Pulse Oximetry (%) 100 10/25/18 13:40 Constitutional: Yes: No Distress, Calm Eyes: Yes: Conjunctiva Clear, EOM Intact HENT: Yes: Atraumatic Neck: Yes: Supple Cardiovascular: Yes: Regular Rate and Rhythm Respiratory: Yes: CTA Bilaterally Gastrointestinal: Yes: Normal Bowel Sounds, Soft Renal/: Yes: WNL Musculoskeletal: Yes: WNL Extremities: Yes: WNL Integumentary: Yes: WNL Neurological: Yes: Alert, Oriented Labs: CBC, BMP 10/25/18 08:00 10/25/18 08:05 Laboratory Results - last 24 hr 10/24/18 10/24/18 10/25/18 14:45 22:30 08:00 WBC 6.4 RBC 3.70 Hgb 11.4 Hct 33.4 MCV 90.2 MCH 30.8 MCHC 34.2 RDW 12.1 Plt Count 179 MPV 8.3 Absolute Neuts (auto) 5.3 Neutrophils % 82.2 Lymphocytes % 8.5 Monocytes % 7.6 Eosinophils % 1.1 D Basophils % 0.6 Nucleated RBC % 0 PT with INR 14.60 H INR 1.23 H Sodium 140 Potassium 4.0 Chloride 104 Carbon Dioxide 29 Anion Gap 7 L BUN 11.8 Creatinine 0.8 Est GFR (CKD-EPI)AfAm 90.30 Est GFR (CKD-EPI)NonAf 77.91 Random Glucose 86 Calcium 8.5 Phosphorus Magnesium Total Bilirubin 1.6 H AST 112 H ALT 498 H Alkaline Phosphatase 205 H Troponin I < 0.02 C-Reactive Protein Total Protein 6.7 Albumin 3.5 Total Amylase 59 Lipase 293 10/25/18 10/25/18 08:00 08:05 WBC RBC Hgb Hct MCV MCH MCHC RDW Plt Count MPV Absolute Neuts (auto) Neutrophils % Lymphocytes % Monocytes % Eosinophils % Basophils % Nucleated RBC % PT with INR INR Sodium 142 Potassium 3.2 L Chloride 106 Carbon Dioxide 28 Anion Gap 8 BUN 8.2 Creatinine 0.6 Est GFR (CKD-EPI)AfAm 111.64 Est GFR (CKD-EPI)NonAf 96.33 Random Glucose 84 Calcium 8.2 L Phosphorus 3.0 Magnesium 2.3 Total Bilirubin 0.9 AST 49 H ALT 322 H Alkaline Phosphatase 154 H Troponin I C-Reactive Protein 13.7 H Total Protein 5.7 L Albumin 3.0 L Total Amylase 32 Lipase 204 Imaging - Results Cat Scan: Report Reviewed Problem List - Problems (1) Abnormal LFTs (liver function tests) Code(s): R94.5 - ABNORMAL RESULTS OF LIVER FUNCTION STUDIES (2) Acute pancreatitis Code(s): K85.90 - ACUTE PANCREATITIS WITHOUT NECROSIS OR INFECTION, UNSP Qualifiers: Pancreatitis type: unspecified pancreatitis type Acute pancreatitis complication: no infection or necrosis Qualified Code(s): K85.90 - Acute pancreatitis without necrosis or infection, unspecified (3) Calculus of gallbladder and bile duct with obstruction without cholecystitis Code(s): K80.71 - CALCULUS OF GB AND BILE DUCT W/O CHOLECYST W OBSTRUCTION Assessment/Plan s/p ERCP/multiple CBD stones extraction -- adjusted dose of Unasyn, d/c Flagyl -- continue monitor temps, LFT trend -- plan is for lap cholecystectomy -- case d/w Dr. Triana Will follow Thank you
[2018-10-25] MEDS: AMPICILLIN NA/SULBACTAM NA 3 GM in SODIUM CHLORIDE 100 ML IVPB SCH (18:31)
[2018-10-25] MEDS: DOCUSATE SODIUM 100 MG CAPSULE (FP) PO SCH (22:38)
[2018-10-25] MEDS: ZOLPIDEM TARTRATE 5 MG TABLET PO PRN (22:38)
[2018-10-26] MEDS: AMPICILLIN NA/SULBACTAM NA 3 GM in SODIUM CHLORIDE 100 ML IVPB SCH ×4 (03:12→18:31)
[2018-10-26 04:08] LABS: CARCINOEMBRYONIC ANTIGEN 0.6 ng/mL (0.0-4.7)
[2018-10-26] MEDS: LACTATED RINGERS SOLUTION 1,000 ML/1,000 ML INFUS.BAG IV SCH ×3 (04:25→22:02)
[2018-10-26 07:57] LABS: BASO % 0.6 % (0-2.0); EOS % 3.1 % (0-4.5); HEMATOCRIT 30.9 % (32.4-45.2); HEMOGLOBIN 10.6 GM/dL (10.7-15.3); LYMPH % 7.2 % (8-40); MCH 30.7 pg (25.7-33.7); MCHC 34.2 g/dl (32.0-36.0); MEAN CELL VOLUME 89.9 fl (80-96); MEAN PLT VOLUME 8.6 fl (7.5-11.1); MONO % 7.6 % (3.8-10.2); NEUT % 81.5 % (42.8-82.8); RBC 3.44 M/mm3 (3.60-5.2); RDW 12.1 % (11.6-15.6); WHITE BLOOD COUNT 5.1 K/mm3 (4.0-10.0)
[2018-10-26 07:58] LABS: INR 1.2 (0.83-1.09); PROTHROMBIN TIME (PATIENT) 14.2 SEC (9.7-13.0)
[2018-10-26 08:09] LABS: ALBUMIN 2.5 g/dl (3.4-5.0); BILIRUBIN,DIRECT 0.5 mg/dL (0.0-0.2); BILIRUBIN,TOTAL 1.7 mg/dL (0.2-1); BLOOD UREA NITROGEN 5.6 mg/dL (7-18); CALCIUM 7.8 mg/dL (8.5-10.1); CREATININE 0.5 mg/dL (0.55-1.3); POTASSIUM 3.4 mmol/L (3.5-5.1); TOT PROT 5.1 g/dl (6.4-8.2)
[2018-10-26 08:18] LABS: PLATELET COUNT 171 K/MM3 (134-434)
--- NOTE | 2018-10-26 09:10 | PN ---
Physical Exam: SUBJECTIVE: Patient seen and examined; changes to clears through sunday where she is planned as NPO after midnight for planned tucker with [facility]. ALT trended down, AST slightly up, CP down, Lipase (-)x2 with no apparent post procedure pancreatitis after ERCP. Hepatitis pannel still pending. Abx changed to unasyn only per ID. UCx with contamination and insignificant CFUs. Continue clears, pain control. Drop in Hb noted but likely dilutional. 10 sys ROS done and negative aside HPI OBJECTIVE: Vital Signs Period Temp Pulse Resp BP Sys/B[place]and Pulse Ox Last 24 Hr 97.5 F-99.7 F 60-77 16-20 100-127/50-71 93-100 GENERAL: The patient is awake, alert, and fully oriented, in no acute distress. HEAD: Normal with no signs of trauma. EYES: PERRL, extraocular movements intact, sclera anicteric, conjunctiva clear. No ptosis. ENT: Ears normal, nares patent, oropharynx clear without exudates, moist mucous membranes. NECK: Trachea midline, full range of motion, supple. LUNGS: Breath sounds equal, clear to auscultation bilaterall HEART: Regular rate and rhythm, S1, S2 without murmur, rub or gallop. ABDOMEN: Soft, mild upper abd tender, nondistended, normoactive bowel sounds, EXTREMITIES: 2+ pulses, warm, well-perfused, no edema. NEUROLOGICAL: Cranial nerves II through XII grossly intact. Normal speech, gait not observed. PSYCH: Normal mood, normal affect. SKIN: Warm, dry, normal turgor, no rashes or lesions noted Laboratory Results - last 24 hr 10/25/18 10/25/18 10/25/18 08:00 08:00 08:05 WBC 6.4 RBC 3.70 Hgb 11.4 Hct 33.4 MCV 90.2 MCH 30.8 MCHC 34.2 RDW 12.1 Plt Count 179 MPV 8.3 Absolute Neuts (auto) 5.3 Neutrophils % 82.2 Lymphocytes % 8.5 Monocytes % 7.6 Eosinophils % 1.1 D Basophils % 0.6 Nucleated RBC % 0 PT with INR INR Sodium 142 Potassium 3.2 L Chloride 106 Carbon Dioxide 28 Anion Gap 8 BUN 8.2 Creatinine 0.6 Est GFR (CKD-EPI)AfAm 111.64 Est GFR (CKD-EPI)NonAf 96.33 Random Glucose 84 Calcium 8.2 L Phosphorus 3.0 Magnesium 2.3 Total Bilirubin 0.9 Direct Bilirubin AST 49 H ALT 322 H Alkaline Phosphatase 154 H C-Reactive Protein 13.7 H Total Protein 5.7 L Albumin 3.0 L Total Amylase 32 Lipase 204 Carcinoembryonic Ag CA 19-9 Antigen Hep C Ab Diagnostic Blood Type Antibody Screen 10/25/18 10/26/18 10/26/18 08:05 07:00 07:00 WBC 5.1 RBC 3.44 L Hgb 10.6 L Hct 30.9 L MCV 89.9 MCH 30.7 MCHC 34.2 RDW 12.1 Plt Count 171 MPV 8.6 Absolute Neuts (auto) 4.1 Neutrophils % 81.5 Lymphocytes % 7.2 L Monocytes % 7.6 Eosinophils % 3.1 D Basophils % 0.6 Nucleated RBC % 0 PT with INR INR Sodium 145 Potassium 3.4 L Chloride 109 H Carbon Dioxide 29 Anion Gap 7 L BUN 5.6 L Creatinine 0.5 L Est GFR (CKD-EPI)AfAm 118.54 Est GFR (CKD-EPI)NonAf 102.28 Random Glucose 91 Calcium 7.8 L Phosphorus Magnesium Total Bilirubin 1.7 H Direct Bilirubin 0.5 H AST 104 H ALT 283 H Alkaline Phosphatase 299 H C-Reactive Protein 12.6 H Total Protein 5.1 L Albumin 2.5 L Total Amylase 31 Lipase 178 Carcinoembryonic Ag 0.6 CA 19-9 Antigen 11 Hep C Ab Diagnostic <0.1 Blood Type Antibody Screen 10/26/18 10/26/18 07:00 07:00 WBC RBC Hgb Hct MCV MCH MCHC RDW Plt Count MPV Absolute Neuts (auto) Neutrophils % Lymphocytes % Monocytes % Eosinophils % Basophils % Nucleated RBC % PT with INR 14.20 H INR 1.20 H Sodium Potassium Chloride Carbon Dioxide Anion Gap BUN Creatinine Est GFR (CKD-EPI)AfAm Est GFR (CKD-EPI)NonAf Random Glucose Calcium Phosphorus Magnesium Total Bilirubin Direct Bilirubin AST ALT Alkaline Phosphatase C-Reactive Protein Total Protein Albumin Total Amylase Lipase Carcinoembryonic Ag CA 19-9 Antigen Hep C Ab Diagnostic Blood Type B NEGATIVE Antibody Screen Negative Active Medications Generic Name Dose Route Start Last Admin Trade Name Freq PRN Reason Stop Dose Admin Acetaminophen 1,000 mg 10/25/18 16:49 Ofirmev Injection - IVPB Q6H PRN Pain Level 4-10 Docusate Sodium 300 mg 10/24/18 22:00 10/25/18 22:38 Colace - PO 300 mg HS KANDY Administration Hydromorphone HCl 1 mg 10/25/18 16:50 Dilaudid Vial - IVPB Q4H PRN Pain Level 7-10 BREAKTHROUGH Lactated Ringer's 1,000 ml in 1,000 mls @ 150 mls/hr 10/26/18 02:45 10/26/18 04:25 Lactated Ringers Solution IV 150 mls/hr ASDIR KANDY Administration Ampicillin Sodium/Sulbactam 100 mls @ 200 mls/hr 10/25/18 18:00 10/26/18 06: 14 Sodium 3 gm/ Sodium Chloride IVPB 200 mls/hr Q6H KANDY Administration Ondansetron HCl 8 mg 10/25/18 13:01 10/25/18 13:06 Zofran Injection IVPB 8 mg Q6H PRN Administration NAUSEA Zolpidem Tartrate 5 mg 10/24/18 21:36 10/25/18 22:38 Ambien - PO 5 mg HS PRN Administration INSOMNIA MRCP reviewed ASSESSMENT/PLAN: Patient presents with gallstone pancreatitis # Gallstone pancreatitis (per imaging) s/p ERCP with stone removal pending cholecystectomy -GI and Sgy following; on until sunday, planned tucker per sgy. -IVF ordered by GI overnight at 150cc/hr. Continue for now; monitor volume status -Continue unasyn per ID, pain control, IVF -Negative tumor markers -Hepatitis pannel pending # Drop in Hb, likely dilutional -PM h/h then recheck in AM Full Code Consultants: ID, GI, Sgy Visit type - Emergency Visit Emergency Visit: No - New Patient This patient is new to me today: Yes Date on this admission: 11/17/18 - Critical Care Critical Care patient: No
--- NOTE | 2018-10-26 09:48 | PN.GI ---
GI Progress Note Subjective: NO NEW COMPLAINTS - STATES SHE IS FEELING BETTER WOULD LIKE TO EAT - Objective Vital Signs: Vital Signs Temperature 98.7 F 10/26/18 06:17 Pulse Rate 67 10/26/18 06:17 Respiratory Rate 20 10/26/18 06:17 Blood Pressure 115/71 10/26/18 06:17 O2 Sat by Pulse Oximetry (%) 95 10/25/18 21:00 Constitutional: Well Nourished, No Distress, Calm Eyes: Yes: WNL HENT: Yes: WNL Neck: Yes: WNL Cardiovascular: Yes: WNL, Regular Rate and Rhythm Respiratory: Yes: WNL, Regular, CTA Bilaterally Gastrointestinal Inspection: Yes: WNL ...Auscultate: Yes: Normoactive Bowel Sounds, Other (NOT TENDER TO PALPATION) Musculoskeletal: Yes: WNL Extremities: Yes: WNL Edema: No Labs: CBC, BMP 10/26/18 07:00 10/26/18 07:00 INR, PTT INR 1.20 (0.83-1.09) H 10/26/18 07:00 Problem List - Problems (1) Abnormal LFTs (liver function tests) Assessment/Plan: GALLSTONE PANCREATITIS S/P ERCP WITH STONE EXTRACTION -- RESOLVING - CLEAR LIQUID DIET PER SURGERY - PLAN FOR CHOLECYSTECTOMY SUNDAY - PAIN MANAGEMENT - TREND LFT / CMET / CBC DAILY Code(s): R94.5 - ABNORMAL RESULTS OF LIVER FUNCTION STUDIES (2) Acute biliary pancreatitis without infection or necrosis Code(s): K85.10 - BILIARY ACUTE PANCREATITIS WITHOUT NECROSIS OR INFECTION (3) Calculus of gallbladder and bile duct with obstruction without cholecystitis Code(s): K80.71 - CALCULUS OF GB AND BILE DUCT W/O CHOLECYST W OBSTRUCTION
--- NOTE | 2018-10-26 12:58 | PN ---
Progress Note, Physician History of Present Illness: Pt with gallstone pancreatitis, contracted gallbladder with stones, s/p ERCP with multiple stone extraction yesterday. Tolerating clears with less pain. Still mild tenderness, but better. Pt using IS. Seen and examined in bed, in good spirits. Getting IV fluids, IV antibiotic, no pain meds used today. - Current Medication List Current Medications: Active Medications Acetaminophen (Ofirmev Injection -) 1,000 mg IVPB Q6H PRN PRN Reason: Pain Level 4-10 Docusate Sodium (Colace -) 300 mg PO HS [facility] Last Admin: 10/25/18 22:38 Dose: 300 mg Hydromorphone HCl (Dilaudid Vial -) 1 mg IVPB Q4H PRN PRN Reason: Pain Level 7-10 BREAKTHROUGH Lactated Ringer's (Lactated Ringers Solution) 1,000 ml in 1,000 mls @ 150 mls/ hr IV ASDIR [facility] Last Admin: 10/26/18 12:27 Dose: 150 mls/hr Ampicillin Sodium/Sulbactam (Sodium 3 gm/ Sodium Chloride) 100 mls @ 200 mls/ hr IVPB Q6H [facility] Last Admin: 10/26/18 12:28 Dose: 200 mls/hr Ondansetron HCl (Zofran Injection) 8 mg IVPB Q6H PRN PRN Reason: NAUSEA Last Admin: 10/25/18 13:06 Dose: 8 mg Zolpidem Tartrate (Ambien -) 5 mg PO HS PRN PRN Reason: INSOMNIA Last Admin: 10/25/18 22:38 Dose: 5 mg - Objective Vital Signs: Vital Signs Temperature 98.8 F 10/26/18 11:00 Pulse Rate 70 10/26/18 11:00 Respiratory Rate 17 10/26/18 11:00 Blood Pressure 114/60 10/26/18 11:00 O2 Sat by Pulse Oximetry (%) 95 10/25/18 21:00 Constitutional: Yes: No Distress, Calm, Obese Eyes: Yes: Conjunctiva Clear, EOM Intact. No: Sclera Icterus HENT: Yes: Atraumatic, Normocephalic Gastrointestinal: Yes: Soft, Abdomen, Obese, Distention (some), Tenderness ( mild RUQ, no LUQ, no R/G), Tenderness, Epigastrium (mild, less than yesterday) Extremities: No: Cool, Cyanosis Integumentary: No: Jaundice, Rash Neurological: Yes: Alert, Oriented Labs: CBC, BMP 10/26/18 07:00 10/26/18 07:00 INR, PTT INR 1.20 (0.83-1.09) H 10/26/18 07:00 K up a little, still a bit low CMP Sodium 145 mmol/L (136-145) 10/26/18 07:00 Potassium 3.4 mmol/L (3.5-5.1) L 10/26/18 07:00 Chloride 109 mmol/L (98-107) H 10/26/18 07:00 Carbon Dioxide 29 mmol/L (21-32) 10/26/18 07:00 Anion Gap 7 MMOL/L (8-16) L 10/26/18 07:00 BUN 5.6 mg/dL (7-18) L 10/26/18 07:00 Creatinine 0.5 mg/dL (0.55-1.3) L 10/26/18 07:00 Est GFR (CKD-EPI)AfAm 118.54 10/26/18 07:00 Est GFR (CKD-EPI)NonAf 102.28 10/26/18 07:00 Random Glucose 91 mg/dL (74-106) 10/26/18 07:00 Lactic Acid 1.4 mmol/L (0.4-2.0) 10/24/18 14:45 Calcium 7.8 mg/dL (8.5-10.1) L 10/26/18 07:00 Phosphorus 3.0 mg/dL (2.5-4.9) 10/25/18 08:05 Magnesium 2.3 mg/dL (1.8-2.4) 10/25/18 08:05 Total Bilirubin 1.7 mg/dL (0.2-1) H 10/26/18 07:00 Direct Bilirubin 0.5 mg/dL (0.0-0.2) H 10/26/18 07:00 AST 104 U/L (15-37) H 10/26/18 07:00 ALT 283 U/L (13-61) H 10/26/18 07:00 Alkaline Phosphatase 299 U/L (45-117) H 10/26/18 07:00 Troponin I < 0.02 ng/ml (0.00-0.05) 10/24/18 14:45 C-Reactive Protein 12.6 MG/DL (0.00-0.3) H 10/26/18 07:00 Total Protein 5.1 g/dl (6.4-8.2) L 10/26/18 07:00 Albumin 2.5 g/dl (3.4-5.0) L 10/26/18 07:00 Total Amylase 31 U/L (25-115) 10/26/18 07:00 Lipase 178 U/L (73-393) 10/26/18 07:00 Carcinoembryonic Ag 0.6 ng/mL (0.0-4.7) 10/25/18 08:05 CA 19-9 Antigen 11 U/mL (0-35) 10/25/18 08:05 lipase down, bili up a bit, LFTs similar to yesterday Problem List - Problems (1) Acute biliary pancreatitis without infection or necrosis Code(s): K85.10 - BILIARY ACUTE PANCREATITIS WITHOUT NECROSIS OR INFECTION (2) Calculus of gallbladder and bile duct with obstruction without cholecystitis Code(s): K80.71 - CALCULUS OF GB AND BILE DUCT W/O CHOLECYST W OBSTRUCTION (3) Epigastric pain Code(s): R10.13 - EPIGASTRIC PAIN (4) Nausea and vomiting Code(s): R11.2 - NAUSEA WITH VOMITING, UNSPECIFIED Qualifiers: Vomiting type: unspecified Vomiting Intractability: non-intractable Qualified Code(s): R11.2 - Nausea with vomiting, unspecified Assessment/Plan s/p ERCP yesterday with extraction of multiple CBD stones contracted gallbladder with stones on imaging pancreatitis, mainly in tail by imaging less epigastric/RUQ tend tolerating clears, continuing IV fluids given pancreatitis trend labs, replete lytes prn no signs of post-ERCP worsening of pancreatitis continue clears; NPO after midnight Sunday night antibiotics per ID/GI plan OR for Sunday 12:30PM - lap tucker poss open discussed with Dr. Shahid and Flori
--- NOTE | 2018-10-26 13:04 | PN ---
Progress Note, Physician History of Present Illness: Pt states she feels well, denies abd pain/n/v/d, tolerating oral intake. Afebrile since yesterday. No specific complaints. - Current Medication List Current Medications: Active Medications Acetaminophen (Ofirmev Injection -) 1,000 mg IVPB Q6H PRN PRN Reason: Pain Level 4-10 Docusate Sodium (Colace -) 300 mg PO HS [facility] Last Admin: 10/25/18 22:38 Dose: 300 mg Hydromorphone HCl (Dilaudid Vial -) 1 mg IVPB Q4H PRN PRN Reason: Pain Level 7-10 BREAKTHROUGH Lactated Ringer's (Lactated Ringers Solution) 1,000 ml in 1,000 mls @ 150 mls/ hr IV ASDIR [facility] Last Admin: 10/26/18 12:27 Dose: 150 mls/hr Ampicillin Sodium/Sulbactam (Sodium 3 gm/ Sodium Chloride) 100 mls @ 200 mls/ hr IVPB Q6H [facility] Last Admin: 10/26/18 12:28 Dose: 200 mls/hr Ondansetron HCl (Zofran Injection) 8 mg IVPB Q6H PRN PRN Reason: NAUSEA Last Admin: 10/25/18 13:06 Dose: 8 mg Zolpidem Tartrate (Ambien -) 5 mg PO HS PRN PRN Reason: INSOMNIA Last Admin: 10/25/18 22:38 Dose: 5 mg - Objective Vital Signs: Vital Signs Temperature 98.8 F 10/26/18 11:00 Pulse Rate 70 10/26/18 11:00 Respiratory Rate 17 10/26/18 11:00 Blood Pressure 114/60 10/26/18 11:00 O2 Sat by Pulse Oximetry (%) 95 10/25/18 21:00 Constitutional: Yes: No Distress, Calm Cardiovascular: Yes: Regular Rate and Rhythm Respiratory: Yes: Regular Gastrointestinal: Yes: Normal Bowel Sounds, Soft Genitourinary: Yes: WNL Extremities: Yes: WNL Integumentary: Yes: WNL Neurological: Yes: Alert, Oriented Labs: CBC, BMP 10/26/18 07:00 10/26/18 07:00 INR, PTT INR 1.20 (0.83-1.09) H 10/26/18 07:00 Abnormal Lab Results 10/26/18 10/26/18 10/26/18 07:00 07:00 07:00 RBC 3.44 L Hgb 10.6 L Hct 30.9 L Lymphocytes % 7.2 L PT with INR 14.20 H INR 1.20 H Potassium 3.4 L Chloride 109 H Anion Gap 7 L BUN 5.6 L Creatinine 0.5 L Calcium 7.8 L Total Bilirubin 1.7 H Direct Bilirubin 0.5 H AST 104 H ALT 283 H Alkaline Phosphatase 299 H C-Reactive Protein 12.6 H Total Protein 5.1 L Albumin 2.5 L Problem List - Problems (1) Abnormal LFTs (liver function tests) Code(s): R94.5 - ABNORMAL RESULTS OF LIVER FUNCTION STUDIES (2) Acute pancreatitis Code(s): K85.90 - ACUTE PANCREATITIS WITHOUT NECROSIS OR INFECTION, UNSP Qualifiers: Pancreatitis type: unspecified pancreatitis type Acute pancreatitis complication: no infection or necrosis Qualified Code(s): K85.90 - Acute pancreatitis without necrosis or infection, unspecified (3) Calculus of gallbladder and bile duct with obstruction without cholecystitis Code(s): K80.71 - CALCULUS OF GB AND BILE DUCT W/O CHOLECYST W OBSTRUCTION Assessment/Plan s/p ERCP/multiple CBD stones extraction -- adjusted dose of Unasyn, d/c Flagyl -- continue monitor temps, LFT trend -- plan is for lap cholecystectomy -- case d/w Dr. Triana Will follow Thank you
--- NOTE | 2018-10-26 13:15 | PN ---
Progress Note, Physician History of Present Illness: Pt states she feels well. Denies abd pain, no recent n/v. Afebrile. Has no complaints. - Current Medication List Current Medications: Active Medications Acetaminophen (Ofirmev Injection -) 1,000 mg IVPB Q6H PRN PRN Reason: Pain Level 4-10 Docusate Sodium (Colace -) 300 mg PO HS [facility] Last Admin: 10/25/18 22:38 Dose: 300 mg Hydromorphone HCl (Dilaudid Vial -) 1 mg IVPB Q4H PRN PRN Reason: Pain Level 7-10 BREAKTHROUGH Lactated Ringer's (Lactated Ringers Solution) 1,000 ml in 1,000 mls @ 150 mls/ hr IV ASDIR [facility] Last Admin: 10/26/18 12:27 Dose: 150 mls/hr Ampicillin Sodium/Sulbactam (Sodium 3 gm/ Sodium Chloride) 100 mls @ 200 mls/ hr IVPB Q6H [facility] Last Admin: 10/26/18 12:28 Dose: 200 mls/hr Ondansetron HCl (Zofran Injection) 8 mg IVPB Q6H PRN PRN Reason: NAUSEA Last Admin: 10/25/18 13:06 Dose: 8 mg Zolpidem Tartrate (Ambien -) 5 mg PO HS PRN PRN Reason: INSOMNIA Last Admin: 10/25/18 22:38 Dose: 5 mg - Objective Vital Signs: Vital Signs Temperature 98.8 F 10/26/18 11:00 Pulse Rate 70 10/26/18 11:00 Respiratory Rate 17 10/26/18 11:00 Blood Pressure 114/60 10/26/18 11:00 O2 Sat by Pulse Oximetry (%) 95 10/25/18 21:00 Constitutional: Yes: No Distress, Calm Cardiovascular: Yes: Regular Rate and Rhythm Respiratory: Yes: Regular Gastrointestinal: Yes: Normal Bowel Sounds, Soft Genitourinary: Yes: WNL Extremities: Yes: WNL Integumentary: Yes: WNL Neurological: Yes: Alert, Oriented Labs: CBC, BMP 10/26/18 07:00 10/26/18 07:00 INR, PTT INR 1.20 (0.83-1.09) H 10/26/18 07:00 Laboratory Last Values WBC 5.1 K/mm3 (4.0-10.0) 10/26/18 07:00 RBC 3.44 M/mm3 (3.60-5.2) L 10/26/18 07:00 Hgb 10.6 GM/dL (10.7-15.3) L 10/26/18 07:00 Hct 30.9 % (32.4-45.2) L 10/26/18 07:00 MCV 89.9 fl (80-96) 10/26/18 07:00 MCH 30.7 pg (25.7-33.7) 10/26/18 07:00 MCHC 34.2 g/dl (32.0-36.0) 10/26/18 07:00 RDW 12.1 % (11.6-15.6) 10/26/18 07:00 Plt Count 171 K/MM3 (134-434) 10/26/18 07:00 MPV 8.6 fl (7.5-11.1) 10/26/18 07:00 Absolute Neuts (auto) 4.1 K/mm3 (1.5-8.0) 10/26/18 07:00 Neutrophils % 81.5 % (42.8-82.8) 10/26/18 07:00 Lymphocytes % 7.2 % (8-40) L 10/26/18 07:00 Monocytes % 7.6 % (3.8-10.2) 10/26/18 07:00 Eosinophils % 3.1 % (0-4.5) D 10/26/18 07:00 Basophils % 0.6 % (0-2.0) 10/26/18 07:00 Nucleated RBC % 0 % (0-0) 10/26/18 07:00 PT with INR 14.20 SEC (9.7-13.0) H 10/26/18 07:00 INR 1.20 (0.83-1.09) H 10/26/18 07:00 Sodium 145 mmol/L (136-145) 10/26/18 07:00 Potassium 3.4 mmol/L (3.5-5.1) L 10/26/18 07:00 Chloride 109 mmol/L (98-107) H 10/26/18 07:00 Carbon Dioxide 29 mmol/L (21-32) 10/26/18 07:00 Anion Gap 7 MMOL/L (8-16) L 10/26/18 07:00 BUN 5.6 mg/dL (7-18) L 10/26/18 07:00 Creatinine 0.5 mg/dL (0.55-1.3) L 10/26/18 07:00 Est GFR (CKD-EPI)AfAm 118.54 10/26/18 07:00 Est GFR (CKD-EPI)NonAf 102.28 10/26/18 07:00 Random Glucose 91 mg/dL (74-106) 10/26/18 07:00 Lactic Acid 1.4 mmol/L (0.4-2.0) 10/24/18 14:45 Calcium 7.8 mg/dL (8.5-10.1) L 10/26/18 07:00 Phosphorus 3.0 mg/dL (2.5-4.9) 10/25/18 08:05 Magnesium 2.3 mg/dL (1.8-2.4) 10/25/18 08:05 Total Bilirubin 1.7 mg/dL (0.2-1) H 10/26/18 07:00 Direct Bilirubin 0.5 mg/dL (0.0-0.2) H 10/26/18 07:00 AST 104 U/L (15-37) H 10/26/18 07:00 ALT 283 U/L (13-61) H 10/26/18 07:00 Alkaline Phosphatase 299 U/L (45-117) H 10/26/18 07:00 Troponin I < 0.02 ng/ml (0.00-0.05) 10/24/18 14:45 C-Reactive Protein 12.6 MG/DL (0.00-0.3) H 10/26/18 07:00 Total Protein 5.1 g/dl (6.4-8.2) L 10/26/18 07:00 Albumin 2.5 g/dl (3.4-5.0) L 10/26/18 07:00 Total Amylase 31 U/L (25-115) 10/26/18 07:00 Lipase 178 U/L (73-393) 10/26/18 07:00 Carcinoembryonic Ag 0.6 ng/mL (0.0-4.7) 10/25/18 08:05 CA 19-9 Antigen 11 U/mL (0-35) 10/25/18 08:05 Urine Color Yellow 10/24/18 14:49 Urine Appearance Clear 10/24/18 14:49 Urine pH 5.5 (5.0-8.0) 10/24/18 14:49 Ur Specific [place] 1.005 (1.010-1.035) L 10/24/18 14:49 Urine Protein Negative (NEGATIVE) 10/24/18 14:49 Urine Glucose (UA) Negative (NEGATIVE) 10/24/18 14:49 Urine Ketones Negative (NEGATIVE) 10/24/18 14:49 Urine Blood Negative (NEGATIVE) 10/24/18 14:49 Urine Nitrite Negative (NEGATIVE) 10/24/18 14:49 Urine Bilirubin Negative (NEGATIVE) 10/24/18 14:49 Urine Urobilinogen 0.2 mg/dL (0.2-1.0) 10/24/18 14:49 Ur Leukocyte Esterase Trace (NEGATIVE) 10/24/18 14:49 Urine WBC (Auto) 3.5 /hpf (0-5) 10/24/18 14:49 Urine RBC (Auto) 1.5 /hpf (0-4) 10/24/18 14:49 Urine Casts (Auto) 0 /lpf (0-8) 10/24/18 14:49 U Epithel Cells (Auto) 1.5 /HPF (0-5/HPF) 10/24/18 14:49 Urine Bacteria (Auto) 5.7 /hpf (NEGATIVE) 10/24/18 14:49 Acetone, Qual Negative (NEGATIVE) L 10/24/18 14:45 Hep C Ab Diagnostic <0.1 s/co ratio (0.0-0.9) 10/25/18 08:05 Blood Type B NEGATIVE 10/26/18 11:55 Antibody Screen Negative 10/26/18 07:00 Microbiology 10/24/18 22:30 Blood - Peripheral Venous Blood Culture - Preliminary NO GROWTH OBTAINED AFTER 24 HOURS, INCUBATION TO CONTINUE FOR 4 DAYS. 10/24/18 14:49 Urine - Urine Clean Catch Urine Culture - Final Lactose Fermenting Neg Bacilli Normal Urogenital Renea Problem List - Problems (1) Abnormal LFTs (liver function tests) Code(s): R94.5 - ABNORMAL RESULTS OF LIVER FUNCTION STUDIES (2) Acute pancreatitis Code(s): K85.90 - ACUTE PANCREATITIS WITHOUT NECROSIS OR INFECTION, UNSP Qualifiers: Pancreatitis type: unspecified pancreatitis type Acute pancreatitis complication: no infection or necrosis Qualified Code(s): K85.90 - Acute pancreatitis without necrosis or infection, unspecified (3) Calculus of gallbladder and bile duct with obstruction without cholecystitis Code(s): K80.71 - CALCULUS OF GB AND BILE DUCT W/O CHOLECYST W OBSTRUCTION Assessment/Plan s/p ERCP/multiple CBD stones extracted -- pt stable at this time -- Blood cultures neg so far -- LFTs elevated, Lipase normal - continue monitor -- lap cholecystectomy planned for Sunday -- case d/w Dr. Triana
[2018-10-26] MEDS ORDERED: PT OWN MED DRAWER 7, Y5N ONE (17:13)
[2018-10-26 19:06] LABS: HEP B CORE AB, TOT Negative (Negative)
[2018-10-26] MEDS: ZOLPIDEM TARTRATE 5 MG TABLET PO PRN (20:30)
[2018-10-26] MEDS: DOCUSATE SODIUM 100 MG CAPSULE (FP) PO SCH (22:04)
[2018-10-27] MEDS ORDERED: PT OWN MED DRAWER 7, Y5N ONE ×6 (00:14→22:55)
[2018-10-27] MEDS: AMPICILLIN NA/SULBACTAM NA 3 GM in SODIUM CHLORIDE 100 ML IVPB SCH ×5 (00:21→23:04)
[2018-10-27] MEDS: LACTATED RINGERS SOLUTION 1,000 ML/1,000 ML INFUS.BAG IV SCH ×2 (05:49→23:08)
[2018-10-27 08:58] LABS: ALBUMIN 2.9 g/dl (3.4-5.0); BILIRUBIN,TOTAL 0.7 mg/dL (0.2-1); CALCIUM 8.5 mg/dL (8.5-10.1); CREATININE 0.6 mg/dL (0.55-1.3); MAGNESIUM 2.3 mg/dL (1.8-2.4); POTASSIUM 3.5 mmol/L (3.5-5.1)
[2018-10-27 09:03] LABS: BLOOD UREA NITROGEN 2.4 mg/dL (7-18)
[2018-10-27 09:29] LABS: HEMATOCRIT 35.4 % (32.4-45.2); LYMPH % 20.3 % (8-40); MCH 30.8 pg (25.7-33.7); MCHC 33.9 g/dl (32.0-36.0); MEAN CELL VOLUME 90.9 fl (80-96); MEAN PLT VOLUME 8.7 fl (7.5-11.1); MONO % 8.1 % (3.8-10.2); NEUT % 65.6 % (42.8-82.8); PLATELET COUNT 255 K/MM3 (134-434); RBC 3.89 M/mm3 (3.60-5.2); RDW 12.2 % (11.6-15.6); WHITE BLOOD COUNT 4.1 K/mm3 (4.0-10.0)
--- NOTE | 2018-10-27 11:44 | PN ---
Progress Note, Physician Chief Complaint: No new complaints, remained afebrile, labs normal TWBC still transaminitis and rising Alk Phosphate - Current Medication List Current Medications: Active Medications Acetaminophen (Ofirmev Injection -) 1,000 mg IVPB Q6H PRN PRN Reason: Pain Level 4-10 Docusate Sodium (Colace -) 300 mg PO HS [facility] Last Admin: 10/26/18 22:04 Dose: 300 mg Hydromorphone HCl (Dilaudid Vial -) 1 mg IVPB Q4H PRN PRN Reason: Pain Level 7-10 BREAKTHROUGH Lactated Ringer's (Lactated Ringers Solution) 1,000 ml in 1,000 mls @ 150 mls/ hr IV ASDIR [facility] Last Admin: 10/27/18 05:49 Dose: 150 mls/hr Ampicillin Sodium/Sulbactam (Sodium 3 gm/ Sodium Chloride) 100 mls @ 200 mls/ hr IVPB Q6H [facility] Last Admin: 10/27/18 05:46 Dose: 200 mls/hr Ondansetron HCl (Zofran Injection) 8 mg IVPB Q6H PRN PRN Reason: NAUSEA Last Admin: 10/25/18 13:06 Dose: 8 mg Zolpidem Tartrate (Ambien -) 5 mg PO HS PRN PRN Reason: INSOMNIA Last Admin: 10/26/18 20:30 Dose: 5 mg - Objective Vital Signs: Vital Signs Temperature 98.4 F 10/27/18 09:59 Pulse Rate 73 10/27/18 09:59 Respiratory Rate 18 10/27/18 09:59 Blood Pressure 132/66 10/27/18 09:59 O2 Sat by Pulse Oximetry (%) 95 10/26/18 21:00 Constitutional: Yes: Well Nourished, No Distress, Calm Eyes: Yes: WNL, Conjunctiva Clear HENT: Yes: Atraumatic, Normocephalic Neck: Yes: Supple, Trachea Midline. No: Decreased ROM, Lymphadenopathy Cardiovascular: Yes: Regular Rate and Rhythm, S1, S2. No: JVD, Murmur Respiratory: Yes: Regular, CTA Bilaterally Gastrointestinal: Yes: Normal Bowel Sounds, Soft. No: Tenderness, Epigastrium, Tenderness, Rebound Musculoskeletal: No: Back Pain, Joint Stiffness Extremities: Yes: Calf Tenderness Edema: No Peripheral Pulses WNL: No Peripheral Pulses: Left Doralis Pedis: 1+, Right Dorsalis Pedis: 1+ Neurological: Yes: Alert, Oriented ...Motor Strength: WNL, LUE, LLE, RUE, RLE Labs: CBC, BMP 10/27/18 07:59 10/27/18 07:59 INR, PTT INR 1.20 (0.83-1.09) H 10/26/18 07:00 Problem List - Problems (1) Acute biliary pancreatitis without infection or necrosis Assessment/Plan: Improving s/p CBD stent placement cont clear liqiod till nigh Laproscopic Cholycystectomy in am , keep NPO after nigh. Code(s): K85.10 - BILIARY ACUTE PANCREATITIS WITHOUT NECROSIS OR INFECTION (2) Nausea and vomiting Assessment/Plan: improved cont PRN Zofran at present improved Code(s): R11.2 - NAUSEA WITH VOMITING, UNSPECIFIED Qualifiers: Vomiting type: unspecified Vomiting Intractability: non-intractable Qualified Code(s): R11.2 - Nausea with vomiting, unspecified (3) Epigastric pain Code(s): R10.13 - EPIGASTRIC PAIN (4) Abnormal LFTs (liver function tests) Assessment/Plan: Due to acute Gall stone pacreatitis F/U BMP Code(s): R94.5 - ABNORMAL RESULTS OF LIVER FUNCTION STUDIES
--- NOTE | 2018-10-27 14:07 | PN ---
Progress Note, Physician History of Present Illness: Pt remains alert, afebrile. Denies abd pain. Tolerating oral intake. Has no specific complaints. - Current Medication List Current Medications: Active Medications Acetaminophen (Ofirmev Injection -) 1,000 mg IVPB Q6H PRN PRN Reason: Pain Level 4-10 Docusate Sodium (Colace -) 300 mg PO HS [facility] Last Admin: 10/26/18 22:04 Dose: 300 mg Lactated Ringer's (Lactated Ringers Solution) 1,000 ml in 1,000 mls @ 150 mls/ hr IV ASDIR [facility] Last Admin: 10/27/18 05:49 Dose: 150 mls/hr Ampicillin Sodium/Sulbactam (Sodium 3 gm/ Sodium Chloride) 100 mls @ 200 mls/ hr IVPB Q6H [facility] Last Admin: 10/27/18 12:13 Dose: 200 mls/hr Ondansetron HCl (Zofran Injection) 8 mg IVPB Q6H PRN PRN Reason: NAUSEA Last Admin: 10/25/18 13:06 Dose: 8 mg Zolpidem Tartrate (Ambien -) 5 mg PO HS PRN PRN Reason: INSOMNIA Last Admin: 10/26/18 20:30 Dose: 5 mg - Objective Vital Signs: Vital Signs Temperature 98.4 F 10/27/18 09:59 Pulse Rate 73 10/27/18 09:59 Respiratory Rate 18 10/27/18 09:59 Blood Pressure 132/66 10/27/18 09:59 O2 Sat by Pulse Oximetry (%) 95 10/26/18 21:00 Constitutional: Yes: No Distress, Calm Neck: Yes: Supple Cardiovascular: Yes: Regular Rate and Rhythm Respiratory: Yes: CTA Bilaterally Gastrointestinal: Yes: Normal Bowel Sounds, Soft Genitourinary: Yes: WNL Musculoskeletal: Yes: WNL Extremities: Yes: WNL Edema: No Integumentary: Yes: WNL Neurological: Yes: Alert, Oriented Labs: CBC, BMP 10/27/18 07:59 10/27/18 07:59 INR, PTT INR 1.20 (0.83-1.09) H 10/26/18 07:00 Laboratory Results - last 24 hr 10/25/18 10/27/18 10/27/18 08:05 07:59 07:59 WBC 4.1 RBC 3.89 Hgb 12.0 Hct 35.4 MCV 90.9 MCH 30.8 MCHC 33.9 RDW 12.2 Plt Count 255 D MPV 8.7 Absolute Neuts (auto) 2.7 Neutrophils % 65.6 Lymphocytes % 20.3 D Monocytes % 8.1 Eosinophils % 5.0 H Basophils % 1.0 Nucleated RBC % 0 Sodium 145 Potassium 3.5 Chloride 107 Carbon Dioxide 33 H Anion Gap 5 L BUN 2.4 L* Creatinine 0.6 Est GFR (CKD-EPI)AfAm 111.64 Est GFR (CKD-EPI)NonAf 96.33 Random Glucose 99 Calcium 8.5 Magnesium 2.3 Total Bilirubin 0.7 AST 43 H ALT 233 H Alkaline Phosphatase 271 H Total Protein 6.0 L Albumin 2.9 L Lipase 186 Hep A IgM Ab Confirm Negative Hepatitis A Ab Total Negative Hep Bs Antigen Negative Hep Bs Antibody Non reactive Hep B Core Total Ab Negative Hep B Core IgM Ab Negative Hepatitis Be Antibody Negative Hepatitis Be Antigen Negative Problem List - Problems (1) Abnormal LFTs (liver function tests) Code(s): R94.5 - ABNORMAL RESULTS OF LIVER FUNCTION STUDIES (2) Acute pancreatitis Code(s): K85.90 - ACUTE PANCREATITIS WITHOUT NECROSIS OR INFECTION, UNSP Qualifiers: Qualified Code(s): K85.90 - Acute pancreatitis without necrosis or infection , unspecified (3) Calculus of gallbladder and bile duct with obstruction without cholecystitis Code(s): K80.71 - CALCULUS OF GB AND BILE DUCT W/O CHOLECYST W OBSTRUCTION Assessment/Plan s/p ERCP/multiple CBD stones extracted -- clinically stable at this time, no fever/abd pain, LFTs trending down - continue monitor -- Lipase normal -- lap cholecystectomy planned for tomorrow
--- NOTE | 2018-10-27 19:48 | PN ---
Progress Note, Physician History of Present Illness: Pt with gallstone pancreatitis, contracted gallbladder with stones, s/p ERCP with multiple stone extraction. Tolerating clears with no more pain or tenderness. Pt using IS. Seen and examined in bed, in good spirits. Getting IV fluids and antibiotics. Ambulating and voiding ok. - Current Medication List Current Medications: Active Medications Acetaminophen (Ofirmev Injection -) 1,000 mg IVPB Q6H PRN PRN Reason: Pain Level 4-10 Docusate Sodium (Colace -) 300 mg PO HS [facility] Last Admin: 10/26/18 22:04 Dose: 300 mg Lactated Ringer's (Lactated Ringers Solution) 1,000 ml in 1,000 mls @ 150 mls/ hr IV ASDIR [facility] Last Admin: 10/27/18 05:49 Dose: 150 mls/hr Ampicillin Sodium/Sulbactam (Sodium 3 gm/ Sodium Chloride) 100 mls @ 200 mls/ hr IVPB Q6H [facility] Last Admin: 10/27/18 17:33 Dose: 200 mls/hr Ondansetron HCl (Zofran Injection) 8 mg IVPB Q6H PRN PRN Reason: NAUSEA Last Admin: 10/25/18 13:06 Dose: 8 mg Zolpidem Tartrate (Ambien -) 5 mg PO HS PRN PRN Reason: INSOMNIA Last Admin: 10/26/18 20:30 Dose: 5 mg - Objective Vital Signs: Vital Signs Temperature 97.6 F 10/27/18 18:41 Pulse Rate 67 10/27/18 18:41 Respiratory Rate 18 10/27/18 18:41 Blood Pressure 136/67 10/27/18 18:41 O2 Sat by Pulse Oximetry (%) 96 10/27/18 09:00 Constitutional: Yes: No Distress, Calm, Obese Eyes: Yes: Conjunctiva Clear, EOM Intact. No: Sclera Icterus HENT: Yes: Atraumatic, Normocephalic Gastrointestinal: Yes: Soft, Abdomen, Obese. No: Tenderness, Tenderness, Epigastrium Extremities: No: Cool, Cyanosis Integumentary: No: Jaundice, Rash Neurological: Yes: Alert, Oriented Labs: CBC, BMP 10/27/18 07:59 10/27/18 07:59 CMP Sodium 145 mmol/L (136-145) 10/27/18 07:59 Potassium 3.5 mmol/L (3.5-5.1) 10/27/18 07:59 Chloride 107 mmol/L (98-107) 10/27/18 07:59 Carbon Dioxide 33 mmol/L (21-32) H 10/27/18 07:59 Anion Gap 5 MMOL/L (8-16) L 10/27/18 07:59 BUN 2.4 mg/dL (7-18) L* 10/27/18 07:59 Creatinine 0.6 mg/dL (0.55-1.3) 10/27/18 07:59 Est GFR (CKD-EPI)AfAm 111.64 10/27/18 07:59 Est GFR (CKD-EPI)NonAf 96.33 10/27/18 07:59 Random Glucose 99 mg/dL (74-106) 10/27/18 07:59 Lactic Acid 1.4 mmol/L (0.4-2.0) 10/24/18 14:45 Calcium 8.5 mg/dL (8.5-10.1) 10/27/18 07:59 Phosphorus 3.0 mg/dL (2.5-4.9) 10/25/18 08:05 Magnesium 2.3 mg/dL (1.8-2.4) 10/27/18 07:59 Total Bilirubin 0.7 mg/dL (0.2-1) 10/27/18 07:59 Direct Bilirubin 0.5 mg/dL (0.0-0.2) H 10/26/18 07:00 AST 43 U/L (15-37) H 10/27/18 07:59 ALT 233 U/L (13-61) H 10/27/18 07:59 Alkaline Phosphatase 271 U/L (45-117) H 10/27/18 07:59 Troponin I < 0.02 ng/ml (0.00-0.05) 10/24/18 14:45 C-Reactive Protein 12.6 MG/DL (0.00-0.3) H 10/26/18 07:00 Total Protein 6.0 g/dl (6.4-8.2) L 10/27/18 07:59 Albumin 2.9 g/dl (3.4-5.0) L 07/21/19 07:59 Total Amylase 31 U/L (25-115) 10/26/18 07:00 Lipase 186 U/L (73-393) 10/27/18 07:59 Carcinoembryonic Ag 0.6 ng/mL (0.0-4.7) 10/25/18 08:05 CA 19-9 Antigen 11 U/mL (0-35) 10/25/18 08:05 LFTs coming down, lipase normal, bili back to normal Problem List - Problems (1) Acute biliary pancreatitis without infection or necrosis Code(s): K85.10 - BILIARY ACUTE PANCREATITIS WITHOUT NECROSIS OR INFECTION (2) Calculus of gallbladder and bile duct with obstruction without cholecystitis Code(s): K80.71 - CALCULUS OF GB AND BILE DUCT W/O CHOLECYST W OBSTRUCTION (3) Epigastric pain Code(s): R10.13 - EPIGASTRIC PAIN (4) Nausea and vomiting Code(s): R11.2 - NAUSEA WITH VOMITING, UNSPECIFIED Qualifiers: Vomiting type: unspecified Vomiting Intractability: non-intractable Qualified Code(s): R11.2 - Nausea with vomiting, unspecified Assessment/Plan s/p ERCP with extraction of multiple CBD stones contracted gallbladder with stones on imaging pancreatitis, mainly in tail by imaging - resolving clinically no epigastric/RUQ tend today tolerating clears, continuing IV fluids trend labs, replete lytes prn NPO after midnight for OR tomorrow antibiotics per ID - should be able to stop postop
[2018-10-27] MEDS ORDERED: ZOLPIDEM TARTRATE 5 MG TABLET PO PRN (22:23)
[2018-10-27] MEDS: DOCUSATE SODIUM 100 MG CAPSULE (FP) PO SCH (22:38)
[2018-10-28] MEDS ORDERED: PT OWN MED DRAWER 7, Y5N ONE (05:29)
[2018-10-28] MEDS: AMPICILLIN NA/SULBACTAM NA 3 GM in SODIUM CHLORIDE 100 ML IVPB SCH ×2 (05:33→14:18)
[2018-10-28] MEDS: LACTATED RINGERS SOLUTION 1,000 ML/1,000 ML INFUS.BAG IV SCH ×3 (05:36→16:30)
[2018-10-28 07:12] LABS: BASO % 1.1 % (0-2.0); HEMATOCRIT 34.5 % (32.4-45.2); HEMOGLOBIN 11.6 GM/dL (10.7-15.3); LYMPH % 19.4 % (8-40); MCH 30.7 pg (25.7-33.7); MCHC 33.6 g/dl (32.0-36.0); MEAN CELL VOLUME 91.3 fl (80-96); MEAN PLT VOLUME 8.4 fl (7.5-11.1); MONO % 9.9 % (3.8-10.2); NEUT % 63.6 % (42.8-82.8); PLATELET COUNT 220 K/MM3 (134-434); RBC 3.78 M/mm3 (3.60-5.2); RDW 12.2 % (11.6-15.6); WHITE BLOOD COUNT 3.3 K/mm3 (4.0-10.0)
[2018-10-28 07:15] LABS: INR 1.15 (0.83-1.09); PROTHROMBIN TIME (PATIENT) 13.6 SEC (9.7-13.0)
[2018-10-28 07:36] LABS: ALBUMIN 2.8 g/dl (3.4-5.0); BILIRUBIN,TOTAL 0.5 mg/dL (0.2-1); CALCIUM 8.4 mg/dL (8.5-10.1); CREATININE 0.6 mg/dL (0.55-1.3); POTASSIUM 3.3 mmol/L (3.5-5.1); TOT PROT 5.5 g/dl (6.4-8.2)
[2018-10-28] MEDS ORDERED: LACTATED RINGERS SOLUTION 1,000 ML/1,000 ML INFUS.BAG IV SCH (07:38)
[2018-10-28] MEDS: KCL 10 MEQ IVPB 10 MEQ/100 ML INFUS.BAG IVPB SCH ×2 (07:55→09:22)
--- NOTE | 2018-10-28 08:14 | PN ---
Progress Note (short form) - Note Progress Note: ERCP results noted. Patient is scheduled for LAP tucker today. Vital Signs (72 hours) 10/25/18 10/25/18 10/25/18 09:00 09:02 12:07 Temperature 98.8 F 97.5 F L Pulse Rate 77 71 Respiratory 16 20 Rate Blood Pressure 127/70 101/61 O2 Sat by Pulse 95 100 Oximetry (%) 10/25/18 10/25/18 10/25/18 12:22 12:37 12:46 Temperature Pulse Rate 70 66 72 Respiratory 19 20 16 Rate Blood Pressure 119/70 104/55 L 118/70 O2 Sat by Pulse 100 93 L 96 Oximetry (%) 10/25/18 10/25/18 10/25/18 13:01 13:16 13:40 Temperature 99.7 F H Pulse Rate 64 60 65 Respiratory 19 19 18 Rate Blood Pressure 105/58 L 111/62 107/57 L O2 Sat by Pulse 93 L 94 L 100 Oximetry (%) 10/25/18 10/25/18 10/25/18 14:26 14:30 18:00 Temperature 98.1 F 98.1 F 98.3 F Pulse Rate 67 68 63 Respiratory 18 18 20 Rate Blood Pressure 124/65 124/65 106/58 L O2 Sat by Pulse 94 L Oximetry (%) 10/25/18 10/25/18 10/26/18 21:00 22:00 06:17 Temperature 98.4 F 98.7 F Pulse Rate 65 67 Respiratory 20 20 Rate Blood Pressure 100/50 L 115/71 O2 Sat by Pulse 95 Oximetry (%) 10/26/18 10/26/18 10/26/18 11:00 14:00 18:27 Temperature 98.8 F 98.9 F 98.4 F Pulse Rate 70 78 72 Respiratory 17 17 18 Rate Blood Pressure 114/60 118/54 L 108/72 O2 Sat by Pulse 95 Oximetry (%) 10/26/18 10/26/18 10/27/18 21:00 22:00 06:00 Temperature 98.2 F 98.1 F Pulse Rate 75 64 Respiratory 18 18 Rate Blood Pressure 121/69 107/60 O2 Sat by Pulse 95 Oximetry (%) 10/27/18 10/27/18 10/27/18 09:00 09:59 14:00 Temperature 98.4 F 98.5 F Pulse Rate 73 72 Respiratory 18 18 18 Rate Blood Pressure 132/66 126/85 O2 Sat by Pulse 96 Oximetry (%) 10/27/18 10/27/18 10/27/18 18:41 21:00 22:00 Temperature 97.6 F 98.5 F Pulse Rate 67 64 Respiratory 18 18 18 Rate Blood Pressure 136/67 119/69 O2 Sat by Pulse 96 Oximetry (%) 10/28/18 06:00 Temperature 98.5 F Pulse Rate 59 L Respiratory 18 Rate Blood Pressure 120/62 O2 Sat by Pulse Oximetry (%) Laboratory Results - last 24 hr 10/27/18 10/27/18 10/28/18 07:59 07:59 06:30 WBC 4.1 3.3 L RBC 3.89 3.78 Hgb 12.0 11.6 Hct 35.4 34.5 MCV 90.9 91.3 MCH 30.8 30.7 MCHC 33.9 33.6 RDW 12.2 12.2 Plt Count 255 D 220 MPV 8.7 8.4 Absolute Neuts (auto) 2.7 2.1 Neutrophils % 65.6 63.6 Lymphocytes % 20.3 D 19.4 Monocytes % 8.1 9.9 Eosinophils % 5.0 H 6.0 H Basophils % 1.0 1.1 Nucleated RBC % 0 0 PT with INR INR Sodium 145 Potassium 3.5 Chloride 107 Carbon Dioxide 33 H Anion Gap 5 L BUN 2.4 L* Creatinine 0.6 Est GFR (CKD-EPI)AfAm 111.64 Est GFR (CKD-EPI)NonAf 96.33 Random Glucose 99 Calcium 8.5 Magnesium 2.3 Total Bilirubin 0.7 AST 43 H ALT 233 H Alkaline Phosphatase 271 H Total Protein 6.0 L Albumin 2.9 L Lipase 186 10/28/18 10/28/18 06:30 06:30 WBC RBC Hgb Hct MCV MCH MCHC RDW Plt Count MPV Absolute Neuts (auto) Neutrophils % Lymphocytes % Monocytes % Eosinophils % Basophils % Nucleated RBC % PT with INR 13.60 H INR 1.15 H Sodium 144 Potassium 3.3 L Chloride 107 Carbon Dioxide 30 Anion Gap 7 L BUN 2.0 L* Creatinine 0.6 Est GFR (CKD-EPI)AfAm 111.64 Est GFR (CKD-EPI)NonAf 96.33 Random Glucose 101 Calcium 8.4 L Magnesium Total Bilirubin 0.5 AST 33 ALT 169 H Alkaline Phosphatase 209 H Total Protein 5.5 L Albumin 2.8 L Lipase PE Awake, alert Lungs are clear Heart S1S2 regular Abdomen soft, NT Ext-no cce Current Active Problems Problem Status Onset Abdominal pain Acute Abnormal LFTs (liver function tests) Acute Acute biliary pancreatitis without infection or necrosis Acute Acute pancreatitis Acute Calculus of gallbladder and bile duct with obstruction without cholecystitis Acute Epigastric pain Acute Family history of stomach cancer Acute Nausea and vomiting Acute Weight loss Acute Plan Lap tucker today lytes repleated. F/u post op. Problem List - Problems (1) Abdominal pain Code(s): R10.9 - UNSPECIFIED ABDOMINAL PAIN Qualifiers: Abdominal location: left upper quadrant Qualified Code(s): R10.12 - Left upper quadrant pain (2) Acute pancreatitis Code(s): K85.90 - ACUTE PANCREATITIS WITHOUT NECROSIS OR INFECTION, UNSP Qualifiers: Pancreatitis type: unspecified pancreatitis type Acute pancreatitis complication: no infection or necrosis Qualified Code(s): K85.90 - Acute pancreatitis without necrosis or infection, unspecified
[2018-10-28] MEDS ORDERED: BUPIVACAINE HCL/PF 0.5% (5MG/ML) 10 ML VIAL ONE ×2 (09:26→12:11)
--- NOTE | 2018-10-28 11:04 | PN ---
Progress Note, Physician History of Present Illness: stable no complaints for surgery today - Current Medication List Current Medications: Active Medications Acetaminophen (Ofirmev Injection -) 1,000 mg IVPB Q6H PRN PRN Reason: Pain Level 4-10 Docusate Sodium (Colace -) 300 mg PO HS [facility] Last Admin: 10/27/18 22:38 Dose: 300 mg Ampicillin Sodium/Sulbactam (Sodium 3 gm/ Sodium Chloride) 100 mls @ 200 mls/ hr IVPB Q6H [facility] Last Admin: 10/28/18 05:33 Dose: 200 mls/hr Lactated Ringer's (Lactated Ringers Solution) 1,000 ml in 1,000 mls @ 100 mls/ hr IV [facility] Last Admin: 10/28/18 07:54 Dose: 100 mls/hr Ondansetron HCl (Zofran Injection) 8 mg IVPB Q6H PRN PRN Reason: NAUSEA Last Admin: 10/25/18 13:06 Dose: 8 mg Zolpidem Tartrate (Ambien -) 5 mg PO HS PRN PRN Reason: INSOMNIA Last Admin: 10/27/18 22:38 Dose: 5 mg - Objective Vital Signs: Vital Signs Temperature 98.6 F 10/28/18 09:00 Pulse Rate 64 10/28/18 09:00 Respiratory Rate 18 10/28/18 09:00 Blood Pressure 149/64 10/28/18 09:00 O2 Sat by Pulse Oximetry (%) 96 10/27/18 21:00 Constitutional: Yes: No Distress, Calm Cardiovascular: Yes: S1, S2 Respiratory: Yes: Regular, CTA Bilaterally Gastrointestinal: Yes: Normal Bowel Sounds, Soft Musculoskeletal: Yes: WNL Extremities: Yes: WNL Neurological: Yes: Alert, Oriented Psychiatric: Yes: Alert, Oriented Labs: CBC, BMP 10/28/18 06:30 10/28/18 06:30 INR, PTT INR 1.15 (0.83-1.09) H 10/28/18 06:30 Assessment/Plan Problem List - Problems (1) Abnormal LFTs (liver function tests) Code(s): R94.5 - ABNORMAL RESULTS OF LIVER FUNCTION STUDIES (2) Acute pancreatitis Code(s): K85.90 - ACUTE PANCREATITIS WITHOUT NECROSIS OR INFECTION, UNSP Qualifiers: Qualified Code(s): K85.90 - Acute pancreatitis without necrosis or infection , unspecified (3) Calculus of gallbladder and bile duct with obstruction without cholecystitis Code(s): K80.71 - CALCULUS OF GB AND BILE DUCT W/O CHOLECYST W OBSTRUCTION Assessment/Plan s/p ERCP/multiple CBD stones extracted -continue current mgmt for surgery today
[2018-10-28] MEDS ORDERED: BENZOIN TINCTURE SWABSTICK TP ONE (12:11)
[2018-10-28] MEDS ORDERED: AMPICILLIN NA/SULBACTAM NA 3 GM/100 ML PRE-DOCKED IVPB ONE (12:15)
[2018-10-28] MEDS ORDERED: VECURONIUM BROMIDE 10 MG VIAL ONE (12:45)
[2018-10-28] MEDS ORDERED: PROPOFOL 20 ML ONE ×2 (12:45)
[2018-10-28] MEDS ORDERED: MIDAZOLAM HCL 2 MG/2 ML SINGLE DOSE VIAL ONE (12:45)
[2018-10-28] MEDS ORDERED: LIDOCAINE HCL/PF 2% SDV 5ML VIAL ONE (12:45)
[2018-10-28] MEDS ORDERED: DEXAMETHASONE SOD PHOSPHATE 4 MG/1 ML VIAL ONE (13:09)
[2018-10-28] MEDS ORDERED: BUPIVACAINE HCL/PF 0.5% (5MG/ML) 10 ML VIAL IJ ONE (13:38)
[2018-10-28] MEDS ORDERED: GLYCOPYRROLATE 0.2 MG/1 ML VIAL ONE (14:25)
[2018-10-28] MEDS ORDERED: NEOSTIGMINE METHYLSULFATE 0.5 MG/ML - 10 ML MDV ONE (14:25)
[2018-10-28] MEDS ORDERED: BUPIVACAINE HCL/PF 0.5% (5 MG/ML) 30 ML VIAL IJ ONE (14:29)
--- NOTE | 2018-10-28 14:50 | OP ---
Operative Note - Note: Operative Date: 10/28/18 Pre-Operative Diagnosis: gallstone pancreatitis, chronic cholecystitis Operation: laparoscopic cholecystectomy Findings: contracted gallbladder with thickened wall/edema, enlarged cystic duct (Weck clips used), critical view identified with duct and artery Post-Operative Diagnosis: Same as Pre-op Surgeon: Silvino Triana Breakfast Hostess: Mukesh Hebert Anesthesiologist/FLIGHT CONTROLS ENGINEER: Akila Weir (w/DiegoTAMIKO pritchard) Anesthesia: General, Local (20ml 0.5% marcaine) Specimens Removed: gallbladder to pathology Estimated Blood Loss (mls): 10 Fluid Volume Replaced (mls): 500 (crystalloid) Operative Report Dictated: Yes
[2018-10-28] MEDS ORDERED: IBUPROFEN 800 MG/8 ML IJ IVPB ONE ×2 (14:51→15:04)
[2018-10-28] MEDS ORDERED: ONDANSETRON 4 MG/2 ML VIAL ONE (15:03)
[2018-10-28] MEDS ORDERED: ONDANSETRON 4 MG/2 ML VIAL IVPUSH ONE (16:09)
[2018-10-28] MEDS ORDERED: ONDANSETRON 4 MG/2 ML VIAL IVPB PRN (16:11)
[2018-10-28] MEDS ORDERED: ZOLPIDEM TARTRATE 5 MG TABLET PO PRN (16:11)
[2018-10-28] MEDS: ACETAMINOPHEN 325 MG TABLET (FP) PO SCH (17:36)
[2018-10-28] MEDS ORDERED: AMPICILLIN NA/SULBACTAM NA 3 GM in SODIUM CHLORIDE 100 ML IVPB SCH (18:00)
[2018-10-28] MEDS ORDERED: ACETAMINOPHEN 325 MG TABLET (FP) PO SCH (18:00)
[2018-10-28] MEDS ORDERED: IBUPROFEN 600 MG TABLET (FP) PO SCH (21:00)
[2018-10-28] MEDS: IBUPROFEN 600 MG TABLET (FP) PO SCH (21:27)
[2018-10-28] MEDS ORDERED: DOCUSATE SODIUM 100 MG CAPSULE (FP) PO SCH (22:00)
[2018-10-29] MEDS: ACETAMINOPHEN 325 MG TABLET (FP) PO SCH ×3 (01:01→12:00)
[2018-10-29] MEDS: IBUPROFEN 600 MG TABLET (FP) PO SCH ×2 (04:18→09:11)
[2018-10-29] MEDS: LACTATED RINGERS SOLUTION 1,000 ML/1,000 ML INFUS.BAG IV SCH (05:59)
--- NOTE | 2018-10-29 12:47 | PN ---
Progress Note, Physician History of Present Illness: stable post op doing well dressing c/d/i - Current Medication List Current Medications: Active Medications Acetaminophen (Tylenol -) 650 mg PO Q6H [facility] Last Admin: 10/29/18 12:00 Dose: 650 mg Docusate Sodium (Colace -) 300 mg PO HS [facility] Last Admin: 10/28/18 21:28 Dose: 300 mg Lactated Ringer's (Lactated Ringers Solution) 1,000 ml in 1,000 mls @ 100 mls/ hr IV ASDIR [facility] Last Admin: 10/29/18 05:59 Dose: 100 mls/hr Ibuprofen (Motrin -) 600 mg PO Q6H [facility] Last Admin: 10/29/18 09:11 Dose: 600 mg Ondansetron HCl (Zofran Injection) 8 mg IVPB Q6H PRN PRN Reason: NAUSEA Zolpidem Tartrate (Ambien -) 5 mg PO HS PRN PRN Reason: INSOMNIA Last Admin: 10/28/18 21:28 Dose: 5 mg - Objective Vital Signs: Vital Signs Temperature 98.8 F 10/29/18 06:00 Pulse Rate 50 L 10/29/18 06:00 Respiratory Rate 18 10/29/18 09:00 Blood Pressure 107/58 L 10/29/18 06:00 O2 Sat by Pulse Oximetry (%) 96 10/29/18 09:00 Constitutional: Yes: No Distress, Calm Cardiovascular: Yes: Regular Rate and Rhythm Respiratory: Yes: Regular, CTA Bilaterally Gastrointestinal: Yes: Normal Bowel Sounds, Soft Musculoskeletal: Yes: WNL Extremities: Yes: WNL Neurological: Yes: Alert, Oriented Psychiatric: Yes: Alert, Oriented Labs: CBC, BMP 10/28/18 06:30 10/28/18 06:30 INR, PTT INR 1.15 (0.83-1.09) H 10/28/18 06:30 Assessment/Plan Problem List - Problems (1) Abnormal LFTs (liver function tests) Code(s): R94.5 - ABNORMAL RESULTS OF LIVER FUNCTION STUDIES (2) Acute pancreatitis Code(s): K85.90 - ACUTE PANCREATITIS WITHOUT NECROSIS OR INFECTION, UNSP Qualifiers: Qualified Code(s): K85.90 - Acute pancreatitis without necrosis or infection , unspecified (3) Calculus of gallbladder and bile duct with obstruction without cholecystitis Code(s): K80.71 - CALCULUS OF GB AND BILE DUCT W/O CHOLECYST W OBSTRUCTION Assessment/Plan s/p ERCP/multiple CBD stones extracted -continue current mgmt can stop all abx monitor rest as per the team
--- NOTE | 2018-10-29 13:40 | PN ---
Progress Note (short form) - Note Progress Note: POD #1 LAP VIKY Tolerates liquids, Ambulates Plan D/C Home as per surgeon F/u with surgery, PMD. Vital Signs Temp 98.8 F 10/29/18 06:00 Pulse 50 L 10/29/18 06:00 Resp 18 10/29/18 09:00 BP 107/58 L 10/29/18 06:00 Pulse Ox 96 10/29/18 09:00 Intake & Output 10/28/18 10/29/18 10/29/18 23:59 11:59 23:59 Intake Total 2550 Output Total 350 Balance 2200 Intake: IV 1800 LACTATED RINGERS SOLUTION 1000 1,000 ml In 1,000 ml @ 100 mls/hr IV ASDIR KANDY Rx#:[id number] IVPB 100 Oral 650 Output: Urine 0 Estimated Blood Loss 10 Other 340 Other: Voiding Method Toilet Toilet # Unmeasured Voids Void 2 1 Bowel Movement No No AWAKE, ALERT, NAD Lungs are Clear Heart S1S2 regular Abdomen soft, NT, activeBS Dressing clean. Current Active Problems Problem Status Onset Abdominal pain Acute Abnormal LFTs (liver function tests) Acute Acute biliary pancreatitis without infection or necrosis Acute Acute pancreatitis Acute Calculus of gallbladder and bile duct with obstruction without cholecystitis Acute Epigastric pain Acute Family history of stomach cancer Acute Nausea and vomiting Acute Weight loss Acute Problem List - Problems (1) Abdominal pain Code(s): R10.9 - UNSPECIFIED ABDOMINAL PAIN Qualifiers: Abdominal location: left upper quadrant Qualified Code(s): R10.12 - Left upper quadrant pain (2) Acute pancreatitis Code(s): K85.90 - ACUTE PANCREATITIS WITHOUT NECROSIS OR INFECTION, UNSP Qualifiers: Pancreatitis type: unspecified pancreatitis type Acute pancreatitis complication: no infection or necrosis Qualified Code(s): K85.90 - Acute pancreatitis without necrosis or infection, unspecified
--- NOTE | 2018-10-29 13:42 | DS ---
Physical Examination Vital Signs: Vital Signs Temperature 98.8 F 10/29/18 06:00 Pulse Rate 50 L 10/29/18 06:00 Respiratory Rate 18 10/29/18 09:00 Blood Pressure 107/58 L 10/29/18 06:00 O2 Sat by Pulse Oximetry (%) 96 10/29/18 09:00 Constitutional: Yes: No Distress, Anxious Eyes: Yes: Conjunctiva Clear, EOM Intact HENT: Yes: Atraumatic, Normocephalic Neck: Yes: Supple, Trachea Midline Cardiovascular: Yes: Regular Rate and Rhythm Respiratory: Yes: Regular, CTA Bilaterally Gastrointestinal: Yes: Normal Bowel Sounds, Soft ...Rectal Exam: Yes: Deferred Renal/: No: Anuria Breast(s): Yes: WNL Extremities: No: Amputation, Cold, Cyanosis Edema: No Wound/Incision: Yes: Dressing Dry and Intact Neurological: Yes: WNL ...Motor Strength: WNL Psychiatric: Yes: WNL Labs: CBC, BMP 10/28/18 06:30 10/28/18 06:30 Discharge Summary Reason For Visit: ACUTE PANCREATITIS, VIKY Current Active Problems Abdominal pain (Acute) Abnormal LFTs (liver function tests) (Acute) Acute biliary pancreatitis without infection or necrosis (Acute) Acute pancreatitis (Acute) Calculus of gallbladder and bile duct with obstruction without cholecystitis ( Acute) Epigastric pain (Acute) Family history of stomach cancer (Acute) Nausea and vomiting (Acute) Weight loss (Acute) Condition: Improved - Instructions Diet, Activity, Other Instructions: Postoperative instructions: You had a laparoscopic cholecystectomy on 10/28/[address] Silvino Triana of [facility]. You also had an ERCP before that with Dr. Vania De Anda (Gastroenterology), to remove gallstones from your common bile duct, which were causing pancreatitis. You were treated with IV fluids and antibiotics, and you have improved significantly. Activity: Resume your usual activities gradually, but no heavy exertion or lifting more than 10-15 pounds for 1 month. Remove dressings 48 hours after surgery; sticky tapes underneath will fall off by themselves. You may shower daily once the outer dressings are off (leave the sticky tapes alone), just pat the incision areas dry. No bath or swimming until skin incisions have fully healed. Eat lightly at first, but advance to your usual diet as tolerated. Pain: For pain, you may use and alternate Tylenol (acetaminophen) 1-2 pills and/ or ibuprofen 200 mg (1-3 pills) every 6 hours each as needed; this means that you can take one OR the other at 3-hour intervals. If you are prescribed a Tylenol/narcotic combination for severe pain, use it instead of plain Tylenol as needed and switch back when your pain starts decreasing. Do not take more than 4000mg of acetaminophen in a day. Take medications as prescribed or indicated on the labeling. Follow-up: Call Dr. Triana's office at [phone] to make your postop appointment (Sunday in approximately 2 weeks after surgery). Clinic is held in the [facility] on the first floor of [facility]. Call the office if you have: * increasing pain not responsive to pain medication * fever of 101F or higher * vomiting * unusual or increasing bleeding or drainage from wounds * increasing redness or swelling at wound sites Also, see your primary medical doctor (Dr. Velasquez) within 1-2 weeks. Referrals: Silvino Triana MD [Staff Physician] - Disposition: HOME - Home Medications Comprehensive Discharge Medication List: Ambulatory Orders NK [No Known Home Medication] 10/24/18
--- NOTE | 2018-10-29 14:00 | PN ---
Progress Note, Physician History of Present Illness: Pt with gallstone pancreatitis, s/p ERCP with multiple stone extraction. Now s/ p lap tucker, tolerating diet, ambulating, voiding, pain controlled with nonnarcotics po. Pt using IS. Seen and examined in bed, in good spirits. Antibiotics finished. Ready to go home. - Current Medication List Current Medications: Active Medications Acetaminophen (Tylenol -) 650 mg PO Q6H [facility] Last Admin: 10/29/18 12:00 Dose: 650 mg Docusate Sodium (Colace -) 300 mg PO HS [facility] Last Admin: 10/28/18 21:28 Dose: 300 mg Lactated Ringer's (Lactated Ringers Solution) 1,000 ml in 1,000 mls @ 100 mls/ hr IV ASDIR [facility] Last Admin: 10/29/18 05:59 Dose: 100 mls/hr Ibuprofen (Motrin -) 600 mg PO Q6H [facility] Last Admin: 10/29/18 09:11 Dose: 600 mg Ondansetron HCl (Zofran Injection) 8 mg IVPB Q6H PRN PRN Reason: NAUSEA Zolpidem Tartrate (Ambien -) 5 mg PO HS PRN PRN Reason: INSOMNIA Last Admin: 10/28/18 21:28 Dose: 5 mg - Objective Vital Signs: Vital Signs Temperature 98.8 F 10/29/18 06:00 Pulse Rate 50 L 10/29/18 06:00 Respiratory Rate 18 10/29/18 09:00 Blood Pressure 107/58 L 10/29/18 06:00 O2 Sat by Pulse Oximetry (%) 96 10/29/18 09:00 Constitutional: Yes: No Distress, Calm, Obese Eyes: Yes: Conjunctiva Clear, EOM Intact. No: Sclera Icterus HENT: Yes: Atraumatic, Normocephalic Gastrointestinal: Yes: Soft, Abdomen, Obese. No: Tenderness (minimal incisional ), Tenderness, Epigastrium Extremities: No: Cool, Cyanosis Integumentary: Yes: Incision (x4 dressed). No: Jaundice, Rash Wound/Incision: Yes: Steri Strips (under dressings), Dressing Dry and Intact (x4 ). No: Dressing Removed Neurological: Yes: Alert, Oriented Labs: no new labs Problem List - Problems (1) Acute biliary pancreatitis without infection or necrosis Code(s): K85.10 - BILIARY ACUTE PANCREATITIS WITHOUT NECROSIS OR INFECTION (2) Calculus of gallbladder and bile duct with obstruction without cholecystitis Code(s): K80.71 - CALCULUS OF GB AND BILE DUCT W/O CHOLECYST W OBSTRUCTION (3) Epigastric pain Code(s): R10.13 - EPIGASTRIC PAIN (4) Nausea and vomiting Code(s): R11.2 - NAUSEA WITH VOMITING, UNSPECIFIED Qualifiers: Vomiting type: unspecified Vomiting Intractability: non-intractable Qualified Code(s): R11.2 - Nausea with vomiting, unspecified Assessment/Plan s/p ERCP with extraction of multiple CBD stones pancreatitis, mainly in tail by imaging - resolved POD1 s/p laparoscopic cholecystectomy with contracted gallbladder, probable chronic cholecystitis tolerating diet, ambulating, voiding pain minimal, doing well with tylenol and ibuprofen antibiotics stopped ok for d/c home to f/u in 2 weeks instructions in d/c plan no need for Rx
[2018-10-29 14:46] VITALS: BP 114/72; PULSE 66; TEMP 98
--- NOTE | 2018-11-01 11:49 | PATH ---
Surgical Pathology Report Patient Name: ANDRESSA PERKINS [facility]. Rec. #: [id number] /Age/Gender: 1955 (Age: 63) / F Account: [id number] Location: [address] [place] [address]/[facility] Taken: 10/28/2018 Received: 10/29/2018 Reported: 11/01/2018 Physicians: Silvino Triana M.D. Specimen(s) Received GALLBLADDER Clinical History Biliary pancreatitis, gallstones status post ERCP Final Diagnosis GALLBLADDER, LAPAROSCOPIC CHOLECYSTECTOMY: CHRONIC CHOLECYSTITIS, CHOLELITHIASIS, AND ADENOMYOMATOUS HYPERPLASIA. PORTION OF LIVER WITHOUT SIGNIFICANT PATHOLOGIC FINDINGS. Electronically Signed Maureen Fuentes M.D. Gross Description Received in formalin, labeled "gallbladder," is a 5.0 x 2.4 x 2.3 cm. gallbladder with a 0.2 cm. in length portion of cystic duct attached. The outer surface is taveras morgan and varies from smooth to shaggy. The lumen contains taveras, tenacious bile as well as 3 moss choleliths ranging around 0.7-1.0 cm in greatest dimension. The mucosa is taveras-brown with focal erosions. The wall of the gallbladder is markedly thickened with abundant submucosal cystic spaces and measures up to 1.1 cm in thickness. [employer]anner sections are submitted in 3 cassettes as follows: 1-cystic duct margin and hvac sales representative mucosa; 4-0-pzejmldpiy full thickness sections of gallbladder. 10/30/2018 [facility]10/30/2018
== END 2018-10-29 15:12 | disposition home or self-care (01) | DRG 263 ==
LOC: JER 13:10 → JERBED 18:38 → J5S 19:51
PROVIDERS: ADMIT Internal Medicine; ATTEND Internal Medicine
PROC: 0FC98ZZ Extirpation of Matter from Common Bile Duct, Via Natural or Artificial Opening Endoscopic (ICD-10-PCS; 2018-10-25)
PROC: 0FC78ZZ Extirpation of Matter from Common Hepatic Duct, Via Natural or Artificial Opening Endoscopic (ICD-10-PCS; 2018-10-25)
PROC: 0FT44ZZ Resection of Gallbladder, Percutaneous Endoscopic Approach (ICD-10-PCS; principal; 2018-10-25 12:00)
DX: K85.90 Acute pancreatitis without necrosis or infection, unspecified (principal); R94.5 Abnormal results of liver function studies; Z80.0 Family history of malignant neoplasm of digestive organs; R63.4 Abnormal weight loss; R10.12 Left upper quadrant pain; Z68.32 Body mass index [BMI] 32.0-32.9, adult; R11.2 Nausea with vomiting, unspecified; K85.10 Biliary acute pancreatitis without necrosis or infection; F41.9 Anxiety disorder, unspecified; G62.9 Polyneuropathy, unspecified; E66.9 Obesity, unspecified; K80.10 Calculus of gallbladder with chronic cholecystitis without obstruction
CPT/HCPCS: 36415; 74177-TC; 74181-TC; 76000-TC-FY; 76705-TC; 80053; 81003; 82009; 82150; 82248; 82378; 83605; 83690; 83735; 84100; 84484; 85025; 85610; 86140; 86301; 86704; 86706; 86707; 86708; 86709; 86803; 86850; 86900; 86901; 87040; 87086; 87340; 88304-TC; 93005; 93010; 94010; 94760; 99283-25; J0131; J7030